=== PATIENT | female | born 1960 | race Caucasian/White ===

== ENCOUNTER 2017-01-29 09:27 | Outpatient (CLI) | payer SELFPAY | END 2017-01-29 09:28 | disposition home or self-care (01) | DX: M47.816 Spondylosis without myelopathy or radiculopathy, lumbar region (principal); M47.817 Spondylosis without myelopathy or radiculopathy, lumbosacral region; M79.641 Pain in right hand ==

== ENCOUNTER 2017-10-18 08:27 | Outpatient (CLI) | payer SELFPAY ==
--- NOTE | 2017-10-23 08:47 | XRAY Report ---
EXAMINATION: BILATERAL ACROMIOCLAVICULAR JOINTS WITH AND WITHOUT WEIGHTS CLINICAL INDICATION: Acromioclavicular joint pain. Frontal weightbearing and nonweightbearing views of the clavicles were obtained. The acromioclavicular joints are symmetric, and there is no significant change with weightbearing. There is no evidence of shoulder separation on either side. IMPRESSION: NORMAL APPEARANCE OF THE ACROMIOCLAVICULAR JOINTS. NO EVIDENCE OF AC SEPARATION ON EITHER SIDE. TD: 10/18/2017 13:29 [facility]
== END 2017-10-18 08:28 | disposition home or self-care (01) ==
LOC: DI.S 08:27
PROVIDERS: ATTEND Nurse Practitioner Family
DX: M25.519 Pain in unspecified shoulder (principal)
CPT/HCPCS: 73050

== ENCOUNTER 2018-06-04 11:30 | Outpatient (CLI) | payer SELFPAY ==
--- NOTE | 2018-06-04 12:08 | XRAY Report ---
Procedure Date: 06/04/2018 Accession Number: [id number] / [id number] Procedure: XRS - Shoulder 2 View RT CPT Code: FULL RESULT: EXAM: Shoulder 2 View RT DATE: 06/04/2018 11:57 AM CLINICAL HISTORY: PAIN IN RIGHT SHOULDER COMPARISON: None. TECHNIQUE: 3 views. FINDINGS: Bones: Normal. No fracture or bone lesion. Joints: The glenohumeral and acromioclavicular joints are normal. Soft tissues: The visualized hemithorax is unremarkable. No soft tissue swelling. IMPRESSION: Normal shoulder radiography. RADIA
== END 2018-06-04 11:31 | disposition home or self-care (01) ==
LOC: DI.S 11:30
PROVIDERS: ATTEND Nurse Practitioner Family
DX: M25.511 Pain in right shoulder (principal)

== ENCOUNTER 2019-09-12 20:44 | Inpatient (IN) | payer MEDICAID ==
--- NOTE | 2019-09-12 21:53 | ED Physician Documentation ---
PD HPI FOCAL NEURO - Stated complaint Stated Complaint: L SIDE NUMBNESS/SLURRING - Chief complaint Chief Complaint: Neuro - History obtained from History obtained from: Patient - History of Present Illness Timing - onset: Enter time (04:00), Today Timing - duration: Hours Timing - details: Abrupt onset Severity of deficit: Moderate Weakness: Arm, Hand, Leg, Foot, Left Numbness: Face, Arm, Hand, Leg, Foot, Left Associated symptoms: No: Headache Contributing factors: negative: Anticoagulated, Vascular dz, Atrial fibrillation, Prosthetic heart valve Baseline status: positive: A&OX3, ambulatory, indep Similar symptoms before: Has not had sx before Recently seen: Not recently seen - Additional information Additional information: patient woke from sleep at approximately 4 AM and noted left-sided numbness (most pronounced in LUE, LLE, but also in face). She thought perhaps this was due to sleeping on that side and thus didn't think it was concerning at that time. She fell back asleep and subsequently woke up and numbness persisted. Family then spoke to her this evening and detected slurred speech and were worried about facial asymmetry. They also noted she was weak on the left side. Review of Systems Constitutional: reports: Reviewed and negative Eyes: reports: Reviewed and negative Ears: reports: Reviewed and negative Nose: reports: Reviewed and negative Throat: reports: Reviewed and negative Cardiac: reports: Reviewed and negative Respiratory: reports: Reviewed and negative GI: reports: Reviewed and negative : reports: Reviewed and negative Skin: reports: Rash (right second finger cellulitis (on PO antibiotics for this and using topical abx as well)) Musculoskeletal: reports: Reviewed and negative Neurologic: reports: Focal weakness, Numbness, Difficulty speaking. denies: Generalized weakness, Confused, Altered mental status, Headache, Head injury PD PAST MEDICAL HISTORY - Past Medical History Past Medical History: Yes Derm: Other (right finger cellulitis (active)) - Past Surgical History Past Surgical History: No - Present Medications Home Medications: Ambulatory Orders Medication Instructions Recorded Confirmed Amoxicillin/Potassium Clav 1 tab PO BID 09/12/19 09/12/19 [Amox-Clav 875-125 mg Tablet] HYDROcod/ACETAM 5/325 [[place] 5/325] 1 - 2 ea PO Q6H PRN 09/12/19 09/12/19 Sertraline [Zoloft] 25 mg PO PRN PRN 09/12/19 09/12/19 Sulfamethoxazole/Trimethoprim 1 tab PO BID 09/12/19 09/12/19 [Sulfamethoxazole-Tmp Ds Tablet] - Allergies Allergies/Adverse Reactions: Allergies Allergy/AdvReac Type Severity Reaction Status Date / Time Penicillins Allergy Unknown Verified 09/12/19 20:51 - Living Situation Living Arrangement: reports: At home - Family History Family history: reports: CVA PD ED PE NORMAL - Vitals Vital signs reviewed: Yes - General General: Alert and oriented X 3, No acute distress, Well developed/nourished - HEENT HEENT: Atraumatic, PERRL, EOMI, Moist mucous membranes - Neck Neck: Supple, no meningeal sign, No bony TTP - Cardiac Cardiac: RRR, No murmur, No gallop, No rub - Respiratory Respiratory: No respiratory distress, Clear bilaterally - Abdomen Abdomen: Soft, Non tender - Derm Derm: Normal color, Warm and dry - Extremities Extremities: No edema - Neuro Neuro: Alert and oriented X 3, saw filer 2-12 intact, Normal speech Eye Opening: Spontaneous Motor: Obeys Commands Verbal: Oriented GCS Score: 15 PD ED PE EXPANDED - Neuro Neuro: Alert and Oriented X 3, Weakness, Abnormal sensation, Dysarthria NIHSS - Level of Consciousness Level of consciousness: (0) Alert, Keenly responsive LOC Questions: (0) Answers both Q's correct LOC Commands: (0) Performs both correctly - Gaze Best Gaze: (0) Normal - Visual Visual: (0) No loss - Facial Palsy Facial Palsy: (0) Normal, symmetrical movement - Motor Arms (both separate) Motor Arm (right): (0) No drift Motor Arm (left): (1) Drift - Motor Legs (both separate) Motor Leg (right): (0) No drift Motor Leg (left): (2) Some effort against gravity - Limb Ataxia Limb Ataxia: (2) Present in 2 limbs (LUE, LLE) - Sensory Sensory: (1) Yfkk-os-phrhdowh loss (face, LUE, LLE) - Best Language Best Language: (0) No aphasia - Dysarthria Dysarthria: (1) [id number] dysarthria - Extinction and Inattention (formally neg Extinction and inattention: (0) No abnormality - Total Score/Results Total Score/Result: 7 Results - Vitals Vitals: Vital Signs - 24 hr 09/12/19 09/12/19 09/12/19 20:51 21:45 22:18 Temperature 37.1 C Heart Rate 77 72 79 Respiratory 17 14 14 Rate Blood Pressure 183/125 H 171/100 H 165/97 H O2 Saturation 98 99 98 09/12/19 09/12/19 09/13/19 22:52 23:29 00:30 Temperature Heart Rate 70 76 74 Respiratory 16 22 18 Rate Blood Pressure 175/105 H 171/99 H 158/86 H O2 Saturation 97 96 100 09/13/19 09/13/19 01:19 01:54 Temperature Heart Rate 74 70 Respiratory 20 16 Rate Blood Pressure 189/89 H 181/113 H O2 Saturation 99 97 Oxygen O2 Source Room air - EKG (time done) No standard instances Rate: Rate (enter#) (71) Rhythm: NSR [place]: Normal Intervals: Normal DE QRS: Normal Ischemia: Normal ST segments - Labs Labs: Laboratory Tests 09/12/19 09/12/19 09/12/19 22:30 22:30 22:30 WBC 8.6 RBC 3.94 L Hgb 12.9 Hct 38.4 MCV 97.5 MCH 32.7 H MCHC 33.6 RDW 14.2 Plt Count 287 MPV 9.9 Neut # (Auto) 6.4 Lymph # (Auto) 1.6 B[place]le # (Auto) 0.5 Eos # (Auto) 0.0 Baso # (Auto) 0.0 Absolute Nucleated RBC 0.00 Nucleated RBC % 0.0 Sodium 136 Potassium 3.5 Chloride 103 Carbon Dioxide 21 Anion Gap 12.0 BUN 13 Creatinine 0.8 Estimated GFR (MDRD) 74 L Glucose 108 H Calcium 9.3 Total Bilirubin 0.8 AST 19 ALT 14 Alkaline Phosphatase 91 Troponin I High Sens 4.9 Total Protein 9.0 H Albumin 4.1 Globulin 4.9 H Albumin/Globulin Ratio 0.8 L Lipase 34 Urine Color Urine Clarity Urine pH Ur Specific [place] Urine Protein Urine Glucose (UA) Urine Ketones Urine Occult Blood Urine Nitrite Urine Bilirubin Urine Urobilinogen Ur Leukocyte Esterase Urine RBC Urine WBC Ur Squamous Epith Cells Urine Bacteria Urine Casts Ur Microscopic Review Urine Culture Comments 09/13/19 01:20 WBC RBC Hgb Hct MCV MCH MCHC RDW Plt Count MPV Neut # (Auto) Lymph # (Auto) Beadle # (Auto) Eos # (Auto) Baso # (Auto) Absolute Nucleated RBC Nucleated RBC % Sodium Potassium Chloride Carbon Dioxide Anion Gap BUN Creatinine Estimated GFR (MDRD) Glucose Calcium Total Bilirubin AST ALT Alkaline Phosphatase Troponin I High Sens Total Protein Albumin Globulin Albumin/Globulin Ratio Lipase Urine Color YELLOW Urine Clarity CLEAR Urine pH 5.5 Ur Specific [place] 1.025 Urine Protein TRACE Urine Glucose (UA) NEGATIVE Urine Ketones 15 H Urine Occult Blood NEGATIVE Urine Nitrite NEGATIVE Urine Bilirubin NEGATIVE Urine Urobilinogen 0.2 (NORMAL) Ur Leukocyte Esterase TRACE H Urine RBC None Seen Urine WBC 4-5 Ur Squamous Epith Cells MOD Squamous H Urine Bacteria Rare Urine Casts 0-2 Hyaline Casts Ur Microscopic Review INDICATED Urine Culture Comments NOT INDICATED - Rads (name of study) CT head Radiology: Prelim report reviewed, See rad report chest xray Radiology: Prelim report reviewed, See rad report PD MEDICAL DECISION MAKING - ED course Complexity details: reviewed results, re-evaluated patient, considered differential, d/w patient, d/w family ED course: H+P s/o CVA, 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 ED testing unremarkable but has significant and persistent deficits and thus would benefit from admission and further testing for suspected CVA. - TPA CVA checklist Inclusion crititeria: positive: Sig neuro deficit, CT no bleed. negative: Onset know < 4.5 hr Departure - Departure Disposition: 66 [facility] DC/Xfer Clinical Impression: Cerebrovascular accident (CVA) Qualifiers: CVA mechanism: unspecified Qualified Code(s): I63.9 - Cerebral infarction, unspecified Condition: Stable Discharge Date/Time: 09/13/19 02:57
[2019-09-12 22:43] LABS: BASOPHILS % (AUTO) 0.2 %; EOSINOPHILS % (AUTO) 0.2 %; HGB - HEMOGLOBIN 12.9 g/dL (12.0-16.0); LYMPHOCYTES # (AUTO) 1.6 10^3/uL (1.5-3.5); LYMPHOCYTES % (AUTO) 18.5 %; MEAN CORPUSCULAR HEMOGLOBIN 32.7 pg (27.0-31.0); MEAN CORPUSCULAR HGB CONC 33.6 g/dL (32.0-36.0); MEAN CORPUSCULAR VOLUME 97.5 fL (81.0-99.0); MEAN PLATELET VOLUME 9.9 fL (7.9-10.8); MONOCYTES # (AUTO) 0.5 10^3/uL (0.0-1.0); NEUTROPHILS # (AUTO) 6.4 10^3/uL (1.5-6.6); NEUTROPHILS % (AUTO) 74.7 %; PLT - PLATELET COUNT 287 10^3/uL (130-450); RED BLOOD COUNT 3.94 10^6/uL (4.20-5.40); RED CELL DISTRIBUTION WIDTH 14.2 % (12.0-15.0); WHITE BLOOD COUNT 8.6 x10^3/uL (4.8-10.8)
[2019-09-12 22:50] LABS: ALBUMIN 4.1 g/dL (3.2-5.5); ALBUMIN/GLOBULIN RATIO 0.8 (1.0-2.2); BILIRUBIN,TOTAL 0.8 mg/dL (0.2-1.0); CALCIUM 9.3 mg/dL (8.5-10.3); CREATININE 0.8 mg/dL (0.4-1.0)
--- NOTE | 2019-09-12 23:00 | CT Report ---
Reason: weakness, numbness Procedure Date: 09/12/2019 Accession Number: [id number] / [id number] Procedure: CT - HEAD WO CPT Code: Final Report FULL RESULT: EXAM: CT HEAD EXAM DATE: 09/12/2019 10:42 PM. CLINICAL HISTORY: Weakness, numbness. Left-sided weakness and numbness since this morning. Slurred speech. COMPARISON: None. TECHNIQUE: Multiaxial CT images were obtained from the foramen magnum to the vertex. Reformats: Sagittal and coronal. IV contrast: None. In accordance with CT protocol optimization, one or more of the following dose reduction techniques were utilized for this exam: automated exposure control, adjustment of mA and/or KV based on patient size, or use of iterative reconstructive technique. FINDINGS: Parenchyma: No acute intracranial hemorrhage or large cortical infarct. No intra-axial mass within the confines of a non-contrast exam. No midline shift. Extraaxial Spaces: No abnormal extra-axial collections demonstrated. Ventricles and sulci: Ventricles and sulci are proportional. Sinuses: Visualized paranasal sinuses are without air-fluid level. No evident mastoid fluid. Orbits: Without significant abnormality. Bones: No evidence of fracture or calvarial defect. Other: None. IMPRESSION: No CT evidence of an acute intracranial abnormality. If there is clinical suspicion of an acute infarct, consider MRI since it is more sensitive than CT. RADIA
--- NOTE | 2019-09-12 23:01 | XRAY Report ---
Reason: weakness Procedure Date: 09/12/2019 Accession Number: [id number] / [id number] Procedure: XR - Chest 2 View X-Ray CPT Code: 84200 Final Report FULL RESULT: EXAM: CHEST RADIOGRAPHY EXAM DATE: 09/12/2019 10:47 PM. CLINICAL HISTORY: Left-sided numbness and weakness. COMPARISON: None. TECHNIQUE: 2 views. FINDINGS: Lungs/Pleura: No alveolar consolidation or pleural effusion seen. No pneumothorax. Mediastinum: Heart and mediastinal contours are unremarkable. Other: None. IMPRESSION: 1. No acute abnormality seen in the chest. RADIA
[2019-09-12] MEDS ORDERED: ACETAMINOPHEN 325 MG TABLET PO STA (23:06)
[2019-09-13] MEDS ORDERED: CYCLOBENZAPRINE 10 MG TABLET PO STA (01:16)
[2019-09-13 01:43] LABS: GLUCOSE, URINE (UA) NEGATIVE (NEGATIVE); KETONES,URINE (UA) 15 mg/dL (NEGATIVE); LEUKOCYTE ESTERASE, URINE TRACE (NEGATIVE); NITRITE,URINE NEGATIVE (NEGATIVE); OCCULT BLOOD,URINE NEGATIVE (NEGATIVE); PH,URINE 5.5 PH (5.0-7.5); PROTEIN,URINE TRACE mg/dL (NEGATIVE); UROBILINOGEN,URINE 0.2 (NORMAL) E.U./dL (NORMAL)
[2019-09-13] MEDS ORDERED: SODIUM CHLORIDE 0.9% 1,000 ML IV STA (01:45)
[2019-09-13 01:54] LABS: BILIRUBIN,URINE NEGATIVE (NEGATIVE); ICTOTEST,URINE NEGATIVE
[2019-09-13 01:55] LABS: BACTERIA,URINE Rare /HPF (None Seen); CASTS, URINE 0-2 Hyaline Casts /LPF; CLARITY,URINE CLEAR (CLEAR); RBC,URINE None Seen /HPF (0-5); SQUAMOUS EPITHELIAL CELL,UR MOD Squamous (<= Few)
[2019-09-13] MEDS ORDERED: SODIUM CHLORIDE FLUSH 0.9% 10 ML SYRINGE IVP PRN (02:24)
--- NOTE | 2019-09-13 02:29 | HISTORY & PHYSICAL EXAMINATION ---
Chief Complaint - Chief Complaint Chief Complaint: left sided weakness History of Present Illness - Admitted From Admitted From:: [facility] ED - History Obtained From Records Reviewed: yes History obtained from: patient - History of Present Illness HPI Comment/Other: Patient is a 58 y/o female who presented to the ED with left sided weakness. She woke up around 4 am on 09/12/19 with left sided weakness/numbness and thought it was because she slept on the arm. She went back to sleep and noticed that the symptoms persisted when she work up a few hours later. She felt unsteady on her feet. Her daughter reports that it appeared like her left arm was just hanging by her side. She presented to the ED on the evening of 09/12/19. As a result of her symptoms she is being admitted for further treatment. She denies chest pain, dyspnea, abd pain, nausea, vomiting, fever or chills. She reports experiencing headaches the previous day. She also complain of spasms in her left leg. The rest of her history is unremarkable. History - Past Medical History Cardiovascular: reports: Hypertension Endocrine/Autoimmune: reports: Systemic lupus erythematosus, Other (Rheumatoid Arthritis) - Past Surgical History Other past surgical history: She denied any surgical history - Family & Social History Family History: Mother: CVA/TIA, Father: MA, Sister: Cancer (breast cancer) Social History Notes: She quit smoking in 1993. She smoked 1/2ppd X15 years. She drinks alcohol occasionally. She uses marijuana - POLST Patient has POLST: No POLST Status: Full Code Meds/Allgy - Home Medications Home Medications: Ambulatory Orders Medication Instructions Recorded Confirmed Amoxicillin/Potassium Clav 1 tab PO BID 09/12/19 09/12/19 [Amox-Clav 875-125 mg Tablet] HYDROcod/ACETAM 5/325 [[place] 5/325] 1 - 2 ea PO Q6H PRN 09/12/19 09/12/19 Sertraline [Zoloft] 25 mg PO PRN PRN 09/12/19 09/12/19 Sulfamethoxazole/Trimethoprim 1 tab PO BID 09/12/19 09/12/19 [Sulfamethoxazole-Tmp Ds Tablet] - Allergies Allergies/Adverse Reactions: Allergies Allergy/AdvReac Type Severity Reaction Status Date / Time Penicillins Allergy Unknown Verified 09/12/19 20:51 Review of Systems - Constitutional Constitutional: reports: Weakness. denies: Fatigue, Fever, Chills, Malaise - Eyes Eyes: denies: Pain, Blurred vision, Vision loss, Dipolpia - Ears, Nose & Throat Ears, Nose & Throat: denies: Vertigo - Cardiovascular Cariovascular: denies: Irregular heart rate, Palpitations, Chest pain, Edema, Lightheadedness, Syncope, Exertional dyspnea - Respiratory Respiratory: denies: Cough, Sputum production, Wheezing - Gastrointestinal Gastrointestinal: denies: Abdominal pain, Abdominal distention, Constipation, Diarrhea, Nausea, Vomiting, Coffee grounds emesis, Reflux/heartburn - Genitourinary Genitourinary: denies: Dysuria, Frequency, Urgency, Hematuria, Incontinence, Flank pain - Musculoskeletal Musculoskeletal: reports: Other (Mscle spasms) - Integumentary Integumentary: reports: Rash, Pruritis, Lesions - Neurological Neurological: reports: Focal weakness (left sided), Headache, Numbness, Abnormal gait - Psychiatric Psychiatric: denies: Depression, Anxiety - Endocrine Endocrine: denies: Polyuria, Polydypsia - Hematologic/Lymphatic Hematologic/Lymphatic: denies: Anemia, Bruising Prior Level of Functionality: She is independent of activities of daily living Exam - Vital Signs Vital Signs: Vital Signs x48h Temp Pulse Resp BP Pulse Ox 09/13/19 01:54 70 16 181/113 H 97 09/13/19 01:19 74 20 189/89 H 99 09/13/19 00:30 74 18 158/86 H 100 09/12/19 23:29 76 22 171/99 H 96 09/12/19 22:52 70 16 175/105 H 97 09/12/19 22:18 79 14 165/97 H 98 09/12/19 21:45 72 14 171/100 H 99 09/12/19 20:51 37.1 C 77 17 183/125 H 98 - Physical Exam General Appearance: positive: Alert, Moderate distress Eyes Bilateral: positive: Normal inspection, PERRL, EOMI ENT: positive: ENT inspection nml, Dry mucous membranes Neck: positive: Nml inspection, No JVD, Trachea midline Respiratory: positive: Chest non-tender, No respiratory distress. negative: Wheezes, Rales, Rhonchi Cardiovascular: positive: Regular rate & rhythm, No murmur. negative: Irregularly irregular Abdomen: positive: Non-tender, No organomegaly, Nml bowel sounds, No distention. negative: Guarding, Rebound Back: positive: Nml inspection Skin: positive: Color nml, No rash, Warm Extremities: positive: Non-tender, No pedal edema. negative: Full ROM Neurologic/Psychiatric: positive: Oriented x3, CN's nml (2-12), Weakness (left sided) Conclusion/Plan - Problem List (1) Cerebrovascular accident (CVA) Conclusion/Plan: Likely 2/2 uncontrolled hypertension Will allow permissive hypertension for now. Will treat is SBP>200 Neuro checks q4hrs. MRI brain, 2D echo ordered Lipid panel, HgA1c pending Patient started on lipitor 40mg po daily Full dose aspirin. 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
[2019-09-13] MEDS ORDERED: SODIUM CHLORIDE FLUSH 0.9% 10 ML SYRINGE ONE (02:59)
[2019-09-13] MEDS: SODIUM CHLORIDE 0.9% 1,000 ML IV SCH ×2 (03:00→11:13)
[2019-09-13 05:28] LABS: BASOPHILS % (AUTO) 0.3 %; EOSINOPHILS % (AUTO) 0.5 %; HGB - HEMOGLOBIN 12.4 g/dL (12.0-16.0); LYMPHOCYTES # (AUTO) 2.5 10^3/uL (1.5-3.5); LYMPHOCYTES % (AUTO) 40.1 %; MEAN CORPUSCULAR HEMOGLOBIN 33.1 pg (27.0-31.0); MEAN CORPUSCULAR HGB CONC 33.6 g/dL (32.0-36.0); MEAN CORPUSCULAR VOLUME 98.4 fL (81.0-99.0); MEAN PLATELET VOLUME 9.8 fL (7.9-10.8); MONOCYTES # (AUTO) 0.5 10^3/uL (0.0-1.0); MONOCYTES % (AUTO) 8.1 %; NEUTROPHILS # (AUTO) 3.2 10^3/uL (1.5-6.6); NEUTROPHILS % (AUTO) 50.7 %; PLT - PLATELET COUNT 268 10^3/uL (130-450); RED BLOOD COUNT 3.75 10^6/uL (4.20-5.40); RED CELL DISTRIBUTION WIDTH 14.1 % (12.0-15.0); WHITE BLOOD COUNT 6.3 x10^3/uL (4.8-10.8)
[2019-09-13 05:43] LABS: HB2 TOTAL 12.5 g/dL; HEMOGLOBIN A1C 0.42 g/dL; HEMOGLOBIN A1C % 5.2 % (4.6-6.2)
[2019-09-13 06:03] LABS: BUN - BLOOD UREA NITROGEN 11 mg/dL (6-20); CALCIUM 9.2 mg/dL (8.5-10.3); CARBON DIOXIDE - CO2 22 mmol/L (21-32); CHLORIDE 106 mmol/L (101-111); CHOL/HDL RATIO 4.3 (<4.4); CHOLESTEROL 168 mg/dL; CREATININE 0.7 mg/dL (0.4-1.0); GFR - MDRD 86 (>89); GLUCOSE 97 mg/dL (70-100); HDL CHOLESTEROL 39 mg/dL; LDL CHOLESTEROL,CALCULATED 112 mg/dL; LDL/HDL RATIO 2.9 (<4.4); SODIUM 139 mmol/L (135-145); VLDL CHOLESTEROL 17 mg/dL
[2019-09-13] MEDS: SODIUM CHLORIDE FLUSH 0.9% 10 ML SYRINGE IVP SCH ×2 (09:37→19:30)
[2019-09-13] MEDS: ASPIRIN 325 MG TABLET PO SCH (09:43)
[2019-09-13] MEDS: ACETAMINOPHEN 500 MG TABLET PO PRN (11:11)
--- NOTE | 2019-09-13 12:21 | Ultrasound Report ---
Reason: CVA work up Procedure Date: 09/13/2019 Accession Number: [id number] / [id number] Procedure: US - Carotid Doppler Complete CPT Code: Final Report FULL RESULT: EXAM: BILATERAL CAROTID AND VERTEBRAL ARTERY DUPLEX DOPPLER ULTRASOUND: EXAM DATE: 09/13/2019 07:11 AM CLINICAL HISTORY: Cerebrovascular accident. Weakness and numbness. COMPARISON: None. TECHNIQUE: Grayscale imaging, color Doppler, and duplex spectral Doppler were used to evaluate the carotid and vertebral arteries bilaterally. Static images were obtained. FINDINGS: Minor atherosclerotic plaque formation is seen mainly in the left carotid bulb. No elevated velocities or ratios to suggest stenosis. Normal antegrade flow is present in bilateral vertebral arteries. VELOCITIES (cm/sec): Right CCA mid: PSV 78.6 cm/sec CCA dist: PSV 63.8 cm/sec ICA prox: PSV 59.9 cm/sec, EDV 15.0 cm/sec ICA mid: PSV 68.3 cm/sec, EDV 31.9 cm/sec ICA dist: PSV 74.9 cm/sec, EDV 29.3 cm/sec ECA: PSV 99.3 cm/sec Vert: PSV 27.8 cm/sec ICA/CCA: 0.9 Left CCA mid: PSV 80.2 cm/sec CCA dist: PSV 57.9 cm/sec ICA prox: PSV 62.6 cm/sec, EDV 27.9 cm/sec ICA mid: PSV 67.8 cm/sec, EDV 30.8 cm/sec ICA dist: PSV 61.8 cm/sec, EDV 30.6 cm/sec ECA: PSV 91.1 cm/sec Vert: PSV 47.0 cm/sec ICA/CCA: 0.8 ICA diameter stenosis: Right: <50% by velocity and <70% by NASCET criteria. Left: <50% by velocity and <70% by NASCET criteria. IMPRESSION: 1. Minimal predominantly left-sided carotid artery plaquing. 2. In the right carotid artery there are no elevated carotid artery velocities to suggest hemodynamically significant stenosis. 3. In the left carotid artery there are no elevated carotid artery velocities to suggest hemodynamically significant stenosis. 4. Normal antegrade flow is present in bilateral vertebral arteries. General Recommendations: Stenosis =50% ICA - Follow-up ultrasound 6-12 months Stenosis <50% ICA - High Risk Patient with plaque - Follow-up ultrasound 1-2 years Normal Study but High Risk Patient - Follow-up ultrasound 3-5 years Management recommendations and diagnostic criteria are based on current IAC endorsed standards in Carotid Artery Stenosis: Grayscale and Doppler Ultrasound Diagnosis. Validated velocity measurements with angiographic measurements and velocity criteria are extrapolated from diameter data as defined by the Society of Radiologists in Ultrasound Consensus Conference Radiology 2003; 229;340-346. RADIA
--- NOTE | 2019-09-13 12:59 | PROVIDER PROGRESS NOTE ---
Subjective - Prog Note Date Prog Note Date: 09/13/19 Prog Note Time: 09:00 - Subjective Pt reports feeling: Improved Subjective: her left plegia is better. asking quesitons. Current Medications - Current Medications Current Medications: Active Medications Acetaminophen (Tylenol) 500 mg PO Q4HR PRN PRN Reason: Pain or Fever > 38C (100.4F) Last Admin: 09/13/19 11:11 Dose: 500 mg Aspirin (Gin) 325 mg PO DAILYWM [facility] Last Admin: 09/13/19 09:43 Dose: 325 mg Atorvastatin Calcium (Lipitor) 40 mg PO QPM [facility] Sodium Chloride (Normal Saline 0.9%) 1,000 mls @ 100 mls/hr IV .Q10H [facility] Last Admin: 09/13/19 11:13 Dose: 100 mls/hr Sodium Chloride (Normal Saline Flush 0.9%) 10 ml IVP PRN PRN PRN Reason: NEEDED PER PROVIDER ORDERS Sodium Chloride (Normal Saline Flush 0.9%) 10 ml IVP 0100,0900,1700 [facility] Last Admin: 09/13/19 09:37 Dose: Not Given Lisinopril 10 mg PO DAILY 09/13/19 Objective - Vital Signs/Intake & Output Reviewed Vital Signs: Yes Vital Signs: Vital Signs x48h Temp Pulse Pulse Resp BP BP Pulse Ox 09/13/19 11:46 36.8 C 73 16 177/97 H 99 09/13/19 10:50 75 148/96 H 09/13/19 07:51 36.8 C 72 18 162/92 H 98 Intake & Output: Intake & Output 09/10/19 09/11/19 09/12/19 09/13/19 23:59 23:59 23:59 23:59 Intake Total 1791.667 Balance 1791.667 - Objective General Appearance: positive: No acute distress, Alert, Other (a little tearful) Eyes Bilateral: positive: PERRL ENT: positive: Pharynx nml Neck: positive: No JVD Respiratory: positive: Chest non-tender. negative: Wheezes, Rales, Rhonchi Cardiovascular: positive: Regular rate & rhythm. negative: Systolic murmur, Gallop/S4, Friction rub Abdomen: positive: Non-tender, No organomegaly, Nml bowel sounds, No distention. negative: Guarding, Rebound Skin: positive: Warm, Dry. negative: Skin rash Extremities: positive: Non-tender, Full ROM (plegia on left), No pedal edema. negative: Joint swelling, Sharmila's sign/cords Neurologic/Psychiatric: positive: Oriented x3, Facial droop (left), Slurred/abnml speech. negative: CN's nml (2-12) (left facial droop), Motor nml (left hemiplegia with arm better than leg. able to lift arm and squeeze hand, able to move leg across bed.) - Lab Results Fish Bones: 09/13/19 05:14 09/13/19 05:14 Other Labs: Lab Results x24hrs 09/13/19 09/13/19 09/13/19 Range/Units 05:14 05:14 05:14 WBC 6.3 (4.8-10.8) x10^3/uL RBC 3.75 L (4.20-5.40) 10^6/uL Hgb 12.4 (12.0-16.0) g/dL Hct 36.9 L (37.0-47.0) % MCV 98.4 (81.0-99.0) fL MCH 33.1 H (27.0-31.0) pg MCHC 33.6 (32.0-36.0) g/dL RDW 14.1 (12.0-15.0) % Plt Count 268 (130-450) 10^3/uL MPV 9.8 (7.9-10.8) fL Neut # (Auto) 3.2 (1.5-6.6) 10^3/uL Lymph # (Auto) 2.5 (1.5-3.5) 10^3/uL [place] # (Auto) 0.5 (0.0-1.0) 10^3/uL Eos # (Auto) 0.0 (0.0-0.7) 10^3/uL Baso # (Auto) 0.0 (0.0-0.1) 10^3/uL Absolute Nucleated RBC 0.00 x10^3/uL Nucleated RBC % 0.0 /100WBC Sodium 139 (135-145) mmol/L Potassium 3.4 L (3.5-5.0) mmol/L Chloride 106 (101-111) mmol/L Carbon Dioxide 22 (21-32) mmol/L Anion Gap 11.0 (6-13) BUN 11 (6-20) mg/dL Creatinine 0.7 (0.4-1.0) mg/dL Estimated GFR (MDRD) 86 L (>89) Glucose 97 (70-100) mg/dL Glycated Hemoglobin 5.2 (4.6-6.2) % Estim Average Glucose 103 H (70-100) Calcium 9.2 (8.5-10.3) mg/dL Total Bilirubin (0.2-1.0) mg/dL AST (10-42) IU/L ALT (10-60) IU/L Alkaline Phosphatase (42-121) IU/L Troponin I High Sens (2.3-14.8) ng/L Total Protein (6.7-8.2) g/dL Albumin (3.2-5.5) g/dL Globulin (2.1-4.2) g/dL Albumin/Globulin Ratio (1.0-2.2) Triglycerides 85 ( - 149) mg/dL Cholesterol 168 ( - 199) mg/dL LDL Cholesterol, Calc 112 ( - 129) mg/dL VLDL Cholesterol 17 mg/dL HDL Cholesterol 39 L (60 - ) mg/dL LDL/HDL Ratio 2.9 (<4.4) Cholesterol/HDL Ratio 4.3 (<4.4) Lipase (22-51) U/L Urine Color Urine Clarity (CLEAR) Urine pH (5.0-7.5) PH Ur Specific Tracy (1.002-1.030) Urine Protein (NEGATIVE) mg/dL Urine Glucose (UA) (NEGATIVE) mg/dL Urine Ketones (NEGATIVE) mg/dL Urine Occult Blood (NEGATIVE) Urine Nitrite (NEGATIVE) Urine Bilirubin (NEGATIVE) Urine Urobilinogen (NORMAL) E.U./dL Ur Leukocyte Esterase (NEGATIVE) Urine RBC (0-5) /HPF Urine WBC (0-5) /HPF Ur Squamous Epith Cells (<= Few) Urine Bacteria (None Seen) /HPF Urine Casts /LPF Ur Microscopic Review Urine Culture Comments 09/13/19 09/12/19 09/12/19 Range/Units 01:20 22:30 22:30 WBC (4.8-10.8) x10^3/uL RBC (4.20-5.40) 10^6/uL Hgb (12.0-16.0) g/dL Hct (37.0-47.0) % MCV (81.0-99.0) fL MCH (27.0-31.0) pg MCHC (32.0-36.0) g/dL RDW (12.0-15.0) % Plt Count (130-450) 10^3/uL MPV (7.9-10.8) fL Neut # (Auto) (1.5-6.6) 10^3/uL Lymph # (Auto) (1.5-3.5) 10^3/uL [place] # (Auto) (0.0-1.0) 10^3/uL Eos # (Auto) (0.0-0.7) 10^3/uL Baso # (Auto) (0.0-0.1) 10^3/uL Absolute Nucleated RBC x10^3/uL Nucleated RBC % /100WBC Sodium 136 (135-145) mmol/L Potassium 3.5 (3.5-5.0) mmol/L Chloride 103 (101-111) mmol/L Carbon Dioxide 21 (21-32) mmol/L Anion Gap 12.0 (6-13) BUN 13 (6-20) mg/dL Creatinine 0.8 (0.4-1.0) mg/dL Estimated GFR (MDRD) 74 L (>89) Glucose 108 H (70-100) mg/dL Glycated Hemoglobin (4.6-6.2) % Estim Average Glucose (70-100) Calcium 9.3 (8.5-10.3) mg/dL Total Bilirubin 0.8 (0.2-1.0) mg/dL AST 19 (10-42) IU/L ALT 14 (10-60) IU/L Alkaline Phosphatase 91 (42-121) IU/L Troponin I High Sens 4.9 (2.3-14.8) ng/L Total Protein 9.0 H (6.7-8.2) g/dL Albumin 4.1 (3.2-5.5) g/dL Globulin 4.9 H (2.1-4.2) g/dL Albumin/Globulin Ratio 0.8 L (1.0-2.2) Triglycerides ( - 149) mg/dL Cholesterol ( - 199) mg/dL LDL Cholesterol, Calc ( - 129) mg/dL VLDL Cholesterol mg/dL HDL Cholesterol (60 - ) mg/dL LDL/HDL Ratio (<4.4) Cholesterol/HDL Ratio (<4.4) Lipase 34 (22-51) U/L Urine Color YELLOW Urine Clarity CLEAR (CLEAR) Urine pH 5.5 (5.0-7.5) PH Ur Specific Tracy 1.025 (1.002-1.030) Urine Protein TRACE (NEGATIVE) mg/dL Urine Glucose (UA) NEGATIVE (NEGATIVE) mg/dL Urine Ketones 15 H (NEGATIVE) mg/dL Urine Occult Blood NEGATIVE (NEGATIVE) Urine Nitrite NEGATIVE (NEGATIVE) Urine Bilirubin NEGATIVE (NEGATIVE) Urine Urobilinogen 0.2 (NORMAL) (NORMAL) E.U./dL Ur Leukocyte Esterase TRACE H (NEGATIVE) Urine RBC None Seen (0-5) /HPF Urine WBC 4-5 (0-5) /HPF Ur Squamous Epith Cells MOD Squamous H (<= Few) Urine Bacteria Rare (None Seen) /HPF Urine Casts 0-2 Hyaline Casts /LPF Ur Microscopic Review INDICATED Urine Culture Comments NOT INDICATED 09/12/19 Range/Units 22:30 WBC 8.6 (4.8-10.8) x10^3/uL RBC 3.94 L (4.20-5.40) 10^6/uL Hgb 12.9 (12.0-16.0) g/dL Hct 38.4 (37.0-47.0) % MCV 97.5 (81.0-99.0) fL MCH 32.7 H (27.0-31.0) pg MCHC 33.6 (32.0-36.0) g/dL RDW 14.2 (12.0-15.0) % Plt Count 287 (130-450) 10^3/uL MPV 9.9 (7.9-10.8) fL Neut # (Auto) 6.4 (1.5-6.6) 10^3/uL Lymph # (Auto) 1.6 (1.5-3.5) 10^3/uL [place] # (Auto) 0.5 (0.0-1.0) 10^3/uL Eos # (Auto) 0.0 (0.0-0.7) 10^3/uL Baso # (Auto) 0.0 (0.0-0.1) 10^3/uL Absolute Nucleated RBC 0.00 x10^3/uL Nucleated RBC % 0.0 /100WBC Sodium (135-145) mmol/L Potassium (3.5-5.0) mmol/L Chloride (101-111) mmol/L Carbon Dioxide (21-32) mmol/L Anion Gap (6-13) BUN (6-20) mg/dL Creatinine (0.4-1.0) mg/dL Estimated GFR (MDRD) (>89) Glucose (70-100) mg/dL Glycated Hemoglobin (4.6-6.2) % Estim Average Glucose (70-100) Calcium (8.5-10.3) mg/dL Total Bilirubin (0.2-1.0) mg/dL AST (10-42) IU/L ALT (10-60) IU/L Alkaline Phosphatase (42-121) IU/L Troponin I High Sens (2.3-14.8) ng/L Total Protein (6.7-8.2) g/dL Albumin (3.2-5.5) g/dL Globulin (2.1-4.2) g/dL Albumin/Globulin Ratio (1.0-2.2) Triglycerides ( - 149) mg/dL Cholesterol ( - 199) mg/dL LDL Cholesterol, Calc ( - 129) mg/dL VLDL Cholesterol mg/dL HDL Cholesterol (60 - ) mg/dL LDL/HDL Ratio (<4.4) Cholesterol/HDL Ratio (<4.4) Lipase (22-51) U/L Urine Color Urine Clarity (CLEAR) Urine pH (5.0-7.5) PH Ur Specific Tracy (1.002-1.030) Urine Protein (NEGATIVE) mg/dL Urine Glucose (UA) (NEGATIVE) mg/dL Urine Ketones (NEGATIVE) mg/dL Urine Occult Blood (NEGATIVE) Urine Nitrite (NEGATIVE) Urine Bilirubin (NEGATIVE) Urine Urobilinogen (NORMAL) E.U./dL Ur Leukocyte Esterase (NEGATIVE) Urine RBC (0-5) /HPF Urine WBC (0-5) /HPF Ur Squamous Epith Cells (<= Few) Urine Bacteria (None Seen) /HPF Urine Casts /LPF Ur Microscopic Review Urine Culture Comments ABX Reporting Has patient been on IV antibiotics over the past 48 hours?: No Assessment/Plan - Problem List (1) Cerebrovascular accident (CVA) Impression: She is already improving. Able to lift her arm up andhold it for a few seconds before it drops. Left hand able to grasp mine and squeeze a bit. CVA Likely 2/2 uncontrolled hypertension vs. lupus vasculitis? Her carotid dopplers are without sig stenosis. But will need repeat carotids in 3 years due to high risk. Plan: continue to allow permissive hypertension for ~72 hours. Will treat is SBP>200 Neuro checks q4hrs. MRI brain, 2D echo ordered Lipid panel, HgA1c pending Patient started on lipitor 40mg po daily Full dose aspirin. PT/OT to evaluate and treat and let us know if candidate for rehab. Qualifiers: CVA mechanism: unspecified Qualified Code(s): I63.9 - Cerebral infarction, unspecified (2) History of lupus Conclusion/Plan: She reports that she stopped seeing her manager talent acquisition She is yet to re-establish Qualifiers: Qualified Code(s): I63.9 - Cerebral infarction, unspecified
[2019-09-13] MEDS ORDERED: SODIUM CHLORIDE 0.9% 1,000 ML IV SCH (16:02)
[2019-09-13] MEDS: SULFAMETHOXAZOLE PO SCH (21:00)
[2019-09-13] MEDS: AMOXICILLIN PO SCH (21:00)
[2019-09-13] MEDS: POTASSIUM CLAV PO SCH (21:00)
[2019-09-13] MEDS: ATORVASTATIN 40 MG TABLET PO SCH (21:00)
[2019-09-13] MEDS: TRIMETHOPRIM PO SCH (21:00)
[2019-09-13] MEDS: MUPIROCIN TOP SCH (21:01)
[2019-09-14] MEDS: SODIUM CHLORIDE FLUSH 0.9% 10 ML SYRINGE IVP SCH ×4 (05:15→23:59)
[2019-09-14] MEDS: ACETAMINOPHEN 500 MG TABLET PO PRN (05:23)
[2019-09-14 05:24] LABS: BASOPHILS % (AUTO) 0.4 %; EOSINOPHILS # (AUTO) 0.1 10^3/uL (0.0-0.7); EOSINOPHILS % (AUTO) 0.9 %; HGB - HEMOGLOBIN 12.1 g/dL (12.0-16.0); LYMPHOCYTES # (AUTO) 2.4 10^3/uL (1.5-3.5); LYMPHOCYTES % (AUTO) 43.6 %; MEAN CORPUSCULAR HEMOGLOBIN 31.5 pg (27.0-31.0); MEAN CORPUSCULAR HGB CONC 32.2 g/dL (32.0-36.0); MEAN CORPUSCULAR VOLUME 97.9 fL (81.0-99.0); MEAN PLATELET VOLUME 9.8 fL (7.9-10.8); MONOCYTES # (AUTO) 0.4 10^3/uL (0.0-1.0); MONOCYTES % (AUTO) 6.6 %; NEUTROPHILS # (AUTO) 2.7 10^3/uL (1.5-6.6); NEUTROPHILS % (AUTO) 48.3 %; PLT - PLATELET COUNT 298 10^3/uL (130-450); RED BLOOD COUNT 3.84 10^6/uL (4.20-5.40); RED CELL DISTRIBUTION WIDTH 14.3 % (12.0-15.0); WHITE BLOOD COUNT 5.6 x10^3/uL (4.8-10.8)
[2019-09-14 05:29] LABS: CREATININE 0.7 mg/dL (0.4-1.0)
[2019-09-14] MEDS: MUPIROCIN TOP SCH ×3 (05:35→21:45)
[2019-09-14] MEDS: SULFAMETHOXAZOLE PO SCH ×2 (08:52→21:45)
[2019-09-14] MEDS: POTASSIUM CLAV PO SCH ×2 (08:52→21:45)
[2019-09-14] MEDS: AMOXICILLIN PO SCH ×2 (08:52→21:45)
[2019-09-14] MEDS: ASPIRIN 325 MG TABLET PO SCH (08:52)
[2019-09-14] MEDS: TRIMETHOPRIM PO SCH ×2 (08:52→21:45)
[2019-09-14] MEDS: LISINOPRIL 5 MG TABLET PO SCH (08:53)
[2019-09-14] MEDS ORDERED: LORazepam 2 MG/ML VIAL IVP PRN (13:06)
--- NOTE | 2019-09-14 13:08 | MRI Report ---
Reason: CVA work up Procedure Date: 09/14/2019 Accession Number: [id number] / [id number] Procedure: MRI - Brain W/O CPT Code: Final Report FULL RESULT: EXAM: MRI BRAIN WITHOUT CONTRAST EXAM DATE: 09/14/2019 11:24 AM. CLINICAL HISTORY: CVA work up. COMPARISON: HEAD W/O 09/12/2019 10:39 PM. TECHNIQUE: Multiplanar, multisequence T1-weighted and fluid-sensitive MR sequences of the brain were performed. Sequences optimized for routine evaluation. Other: None. IV Contrast: None. FINDINGS: There is diffusion restriction demonstrated within the posterior limb of the right internal capsule extending into the right caudate body (120, 505). This would be consistent with an area of acute to subacute cerebral infarction. There is T2 hyperintensity associated with the area of infarction consistent with a mild degree of associated edema. Cerebral volume and ventricular size are normal. The images are degraded by motion. There is fluid intensity within a few mastoid air cells bilaterally. The cerebral vascular flow voids are patent. The T2* sequence is normal. There is no evidence of subacute or chronic hemorrhage. The corpus callosum is of normal size and configuration. The pituitary and sella are normal. The craniocervical junction is normal. The optic nerves demonstrate symmetric signal intensity and size. The imaged portions of the paranasal sinuses are normally aerated. The bilateral parotid spaces exhibit normal signal intensity. The cerebral vascular flow voids are patent. IMPRESSION: 1. There is an acute to subacute area of cerebral infarction demonstrated in the posterior limb of the right internal capsule extending into the right caudate body. There is no evidence of overt hemorrhagic transformation within this area of cerebral infarction. The critical result notification system was initiated by Dr. Ayo Echols at 01:07 PM on 09/14/2019. The above critical result findings were discussed with Dr. Pearson by Dr. Ayo Echols at 01:14 PM on 09/14/2019.
[2019-09-14] MEDS: oxyCODONE 5 MG TABLET PO PRN (21:44)
[2019-09-14] MEDS: ATORVASTATIN 40 MG TABLET PO SCH (21:44)
--- NOTE | 2019-09-14 21:48 | PROVIDER PROGRESS NOTE ---
Assessment/Plan - Problem List (1) Cerebrovascular accident (CVA) Qualifiers: Qualified Code(s): I63.9 - Cerebral infarction, unspecified Assessment/Plan: MRI brain confirmed acute to subacute area of cerebral infarction in the posterior limb of the right internal capsule extending into the right caudate body. Patient ambulated with a walker during physical therapy today. Transfer to rehab pending occupational therapy assessment. 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 Will extent to a total of 13 days Re-incised and expressed due to persistent pain Continue mupirocin ointment Administer tetanus shot in the am Pain management - Current Meds Current Meds: Current Medications Generic Name Dose Route Start Last Admin Trade Name Freq PRN Reason Stop Dose Admin Acetaminophen 500 mg 09/13/19 10:30 09/14/19 05:23 Tylenol PO 500 mg Q4HR PRN Administration Pain or Fever > 38C (100.4F) Aspirin 325 mg 09/13/19 08:00 09/14/19 08:52 Gin PO 325 mg DAILYWM TIANA Administration Atorvastatin Calcium 40 mg 09/13/19 21:00 09/14/19 21:44 Lipitor PO 40 mg QPM TIANA Administration Sodium Chloride 1,000 mls @ 0 mls/hr 09/13/19 16:02 09/14/19 20:37 Normal Saline 0.9% IV 0 mls/hr .Q0M TIANA Infusion TKO Lisinopril 10 mg 09/14/19 09:00 09/14/19 08:53 Zestril PO Not Given DAILY TIANA Oxycodone HCl 5 mg 09/13/19 16:02 09/14/19 21:44 Roxicodone PO 5 mg Q6HR PRN Administration PAIN Amoxicillin/ 1 each 09/13/19 21:00 09/14/19 21:45 Potassium Clav [Amox PO 09/16/19 21:01 1 each -Clav 875-125 Mg BID TIANA Administration Tablet] 1 Tab) (Mupirocin [ 1 each 09/13/19 22:00 09/14/19 21:45 Mupirocin] Ointment TOP 09/16/19 22:01 1 each 1 Applic) TID TIANA Administration (Sulfamethoxazole/ 1 each 09/13/19 21:00 09/14/19 21:45 Trimethoprim [ PO 09/16/19 21:01 1 each Sulfamethoxazole-Tmp BID TIANA Administration Ds Tablet] 1 Tab) Sodium Chloride 10 ml 09/13/19 09:00 09/14/19 19:21 Normal Saline Flush 0.9% IVP 10 ml 0100,0900,1700 TIANA Administration - Lab Result Fish Bone Diagrams: 09/14/19 04:54 09/14/19 04:54 - Additional Planning My Orders: My Active Orders 09/13/19 21:00 Atorvastatin [Lipitor] 40 mg PO QPM 09/15/19 05:00 BMP - BASIC METABOLIC PANEL [CHEM] DAILYLAB CBC - COMP BLD CT W/AUTO DIFF [HEME] DAILYLAB 09/15/19 09:00 Docusate Sodium 250Mg Capsule [Colace 250Mg Capsule] 250 - 500 mg PO DAILY Polyethylene Glycol 3350 [Miralax] 17 gm PO DAILY Senna [Senokot] 8.6 - 17.2 mg PO DAILY 09/16/19 05:00 BMP - BASIC METABOLIC PANEL [CHEM] DAILYLAB CBC - COMP BLD CT W/AUTO DIFF [HEME] DAILYLAB 09/17/19 05:00 BMP - BASIC METABOLIC PANEL [CHEM] DAILYLAB CBC - COMP BLD CT W/AUTO DIFF [HEME] DAILYLAB Subjective - Subjective Patient Reports: Other (Pt complained of feeling hot and cold (?hot flashes) She complained of persistent pain in her left index finger where she has an infection She was able to ambulate today using a walker, during physical therapy. She denied chest pain, dyspnea, abdominal pain, fever or chills) Objective Vital Signs: Vital Signs - 24 hr 09/13/19 09/14/19 09/14/19 22:00 00:45 05:00 Temperature 36.6 C 36.8 C 36.8 C Heart Rate 77 Heart Rate [ 67 78 Brachial] Respiratory 18 16 18 Rate Blood Pressure 139/78 H 146/89 H [Right Brachial artery] O2 Saturation 99 97 97 09/14/19 09/14/19 09/14/19 08:20 12:08 16:13 Temperature 36.9 C 36.7 C 36.9 C Heart Rate Heart Rate [ 84 72 78 Brachial] Respiratory 18 18 18 Rate Blood Pressure 148/93 H 168/97 H 176/102 H [Right Brachial artery] O2 Saturation 97 99 98 Oxygen O2 Source Room air I&O (Last 24 Hrs): Intake and Output Totals x24h 09/12/19 09/13/19 09/14/19 23:59 23:59 23:59 Intake Total 2620.000 1138.334 Output Total 1000 700 Balance 1620.000 438.334 General: Alert, Oriented x3, Cooperative, Moderate distress HEENT: Atraumatic, PERRLA, EOMI Neck: Supple, No JVD Neuro: Alert, Focal Deficits (mild weakness on left side. Improving) Cardiovascular: Regular rate Respiratory: Chest non-tender, No respiratory distress, Breath sounds nml Abdomen: Normal bowel sounds, Soft, No tenderness Genitourinary: Other (Deferred) Rectal: Other (Deferred) Extremities: No edema Skin: No rashes - Results Results: Laboratory Results WBC 5.6 x10^3/uL (4.8-10.8) 09/14/19 04:54 RBC 3.84 10^6/uL (4.20-5.40) L 09/14/19 04:54 Hgb 12.1 g/dL (12.0-16.0) 09/14/19 04:54 Hct 37.6 % (37.0-47.0) 09/14/19 04:54 MCV 97.9 fL (81.0-99.0) 09/14/19 04:54 MCH 31.5 pg (27.0-31.0) H 09/14/19 04:54 MCHC 32.2 g/dL (32.0-36.0) 09/14/19 04:54 RDW 14.3 % (12.0-15.0) 09/14/19 04:54 Plt Count 298 10^3/uL (130-450) 09/14/19 04:54 MPV 9.8 fL (7.9-10.8) 09/14/19 04:54 Neut # (Auto) 2.7 10^3/uL (1.5-6.6) 09/14/19 04:54 Lymph # (Auto) 2.4 10^3/uL (1.5-3.5) 09/14/19 04:54 [place] # (Auto) 0.4 10^3/uL (0.0-1.0) 09/14/19 04:54 Eos # (Auto) 0.1 10^3/uL (0.0-0.7) 09/14/19 04:54 Baso # (Auto) 0.0 10^3/uL (0.0-0.1) 09/14/19 04:54 Absolute Nucleated RBC 0.00 x10^3/uL 09/14/19 04:54 Nucleated RBC % 0.0 /100WBC 09/14/19 04:54 Sodium 140 mmol/L (135-145) 09/14/19 04:54 Potassium 3.7 mmol/L (3.5-5.0) 09/14/19 04:54 Chloride 109 mmol/L (101-111) 09/14/19 04:54 Carbon Dioxide 23 mmol/L (21-32) 09/14/19 04:54 Anion Gap 8.0 (6-13) 09/14/19 04:54 BUN 9 mg/dL (6-20) 09/14/19 04:54 Creatinine 0.7 mg/dL (0.4-1.0) 09/14/19 04:54 Estimated GFR (MDRD) 86 (>89) L 09/14/19 04:54 Glucose 97 mg/dL (70-100) 09/14/19 04:54 Glycated Hemoglobin 5.2 % (4.6-6.2) 09/13/19 05:14 Estim Average Glucose 103 (70-100) H 09/13/19 05:14 Calcium 9.0 mg/dL (8.5-10.3) 09/14/19 04:54 Total Bilirubin 0.8 mg/dL (0.2-1.0) 09/12/19 22:30 AST 19 IU/L (10-42) 09/12/19 22:30 ALT 14 IU/L (10-60) 09/12/19 22:30 Alkaline Phosphatase 91 IU/L (42-121) 09/12/19 22:30 Troponin I High Sens 4.9 ng/L (2.3-14.8) 09/12/19 22:30 Total Protein 9.0 g/dL (6.7-8.2) H 09/12/19 22:30 Albumin 4.1 g/dL (3.2-5.5) 09/12/19 22:30 Globulin 4.9 g/dL (2.1-4.2) H 09/12/19 22:30 Albumin/Globulin Ratio 0.8 (1.0-2.2) L 09/12/19 22:30 Triglycerides 85 mg/dL (-149) 09/13/19 05:14 Cholesterol 168 mg/dL (-199) 09/13/19 05:14 LDL Cholesterol, Calc 112 mg/dL (-129) 09/13/19 05:14 VLDL Cholesterol 17 mg/dL 09/13/19 05:14 HDL Cholesterol 39 mg/dL (60-) L 09/13/19 05:14 LDL/HDL Ratio 2.9 (<4.4) 09/13/19 05:14 Cholesterol/HDL Ratio 4.3 (<4.4) 09/13/19 05:14 Lipase 34 U/L (22-51) 09/12/19 22:30 Urine Color YELLOW 09/13/19 01:20 Urine Clarity CLEAR (CLEAR) 09/13/19 01:20 Urine pH 5.5 PH (5.0-7.5) 09/13/19 01:20 Ur Specific [place] 1.025 (1.002-1.030) 09/13/19 01:20 Urine Protein TRACE mg/dL (NEGATIVE) 09/13/19 01:20 Urine Glucose (UA) NEGATIVE mg/dL (NEGATIVE) 09/13/19 01:20 Urine Ketones 15 mg/dL (NEGATIVE) H 09/13/19 01:20 Urine Occult Blood NEGATIVE (NEGATIVE) 09/13/19 01:20 Urine Nitrite NEGATIVE (NEGATIVE) 09/13/19 01:20 Urine Bilirubin NEGATIVE (NEGATIVE) 09/13/19 01:20 Urine Urobilinogen 0.2 (NORMAL) E.U./dL (NORMAL) 09/13/19 01:20 Ur Leukocyte Esterase TRACE (NEGATIVE) H 09/13/19 01:20 Urine RBC None Seen /HPF (0-5) 09/13/19 01:20 Urine WBC 4-5 /HPF (0-5) 09/13/19 01:20 Ur Squamous Epith Cells MOD Squamous (<= Few) H 09/13/19 01:20 Urine Bacteria Rare /HPF (None Seen) 09/13/19 01:20 Urine Casts 0-2 Hyaline Casts /LPF 09/13/19 01:20 Ur Microscopic Review INDICATED 09/13/19 01:20 Urine Culture Comments NOT INDICATED 09/13/19 01:20 ABX Reporting Has patient been on IV antibiotics over the past 48 hours?: No
[2019-09-14] MEDS ORDERED: LIDOCAINE-MPF 1% 5 ML VIAL ONE (23:04)
[2019-09-15 05:13] LABS: BASOPHILS % (AUTO) 0.3 %; EOSINOPHILS % (AUTO) 0.5 %; LYMPHOCYTES # (AUTO) 2.6 10^3/uL (1.5-3.5); LYMPHOCYTES % (AUTO) 38.7 %; MEAN CORPUSCULAR HEMOGLOBIN 32.8 pg (27.0-31.0); MEAN CORPUSCULAR HGB CONC 33.4 g/dL (32.0-36.0); MEAN CORPUSCULAR VOLUME 98.2 fL (81.0-99.0); MEAN PLATELET VOLUME 9.6 fL (7.9-10.8); MONOCYTES # (AUTO) 0.5 10^3/uL (0.0-1.0); MONOCYTES % (AUTO) 7.5 %; NEUTROPHILS # (AUTO) 3.5 10^3/uL (1.5-6.6); NEUTROPHILS % (AUTO) 52.7 %; PLT - PLATELET COUNT 297 10^3/uL (130-450); RED BLOOD COUNT 3.96 10^6/uL (4.20-5.40); RED CELL DISTRIBUTION WIDTH 14.1 % (12.0-15.0); WHITE BLOOD COUNT 6.7 x10^3/uL (4.8-10.8)
[2019-09-15 05:25] LABS: CALCIUM 9.3 mg/dL (8.5-10.3); CREATININE 0.9 mg/dL (0.4-1.0)
[2019-09-15] MEDS: oxyCODONE 5 MG TABLET PO PRN ×2 (05:34→16:10)
[2019-09-15] MEDS: MUPIROCIN TOP SCH ×3 (05:38→20:22)
[2019-09-15] MEDS: SENNA 8.6 MG TABLET PO SCH (08:58)
[2019-09-15] MEDS: SULFAMETH/TRIMETH DS 800/160 MG TABLET PO SCH ×2 (08:59→22:18)
[2019-09-15] MEDS: DOCUSATE SODIUM 250 MG CAPSULE PO SCH (08:59)
[2019-09-15] MEDS: POLYETHYLENE GLYCOL 3350 17 GM PACKET PO SCH (08:59)
[2019-09-15] MEDS: ASPIRIN 325 MG TABLET PO SCH (08:59)
[2019-09-15] MEDS: LISINOPRIL 5 MG TABLET PO SCH (08:59)
[2019-09-15] MEDS: SODIUM CHLORIDE FLUSH 0.9% 10 ML SYRINGE IVP SCH ×2 (09:00→16:04)
[2019-09-15] MEDS ORDERED: MUPIROCIN 2% OINT 22 GM TUBE TOP SCH (09:00)
[2019-09-15] MEDS ORDERED: TETANUS/DIPHTHERIA/PERTUSSIS 0.5 ML SYRINGE IM ONE ×2 (09:00→15:30)
[2019-09-15] MEDS: POTASSIUM CLAV PO SCH ×2 (09:07→22:18)
[2019-09-15] MEDS: AMOXICILLIN PO SCH ×2 (09:07→22:18)
[2019-09-15] MEDS: ACETAMINOPHEN 500 MG TABLET PO PRN (13:05)
--- NOTE | 2019-09-15 13:12 | Discharge Plan ---
"Discharge Plan for SNF / [facility] - Discharge Plan And Transition Orders Problem Reviewed?: Yes Disposition: 02 Transfer Acute Care Hosp Condition: Stable Allergies and Adverse Reactions: Allergies Allergy/AdvReac Type Severity Reaction Status Date / Time Penicillins Allergy Unknown Verified 09/12/19 20:51 Plan of Treatment: Acute rehab post stroke Care Goals: Maximize functional status - SNF / [facility] Transition Orders Admit to (Facility): [facility] Discharge Diagnosis: Acute to subacute cerebral infarct of Right internal capsule extending into right caudate body No hemorrhagic transformation Hypertension uncontrolled at home primary risk factor Stable -Deficits (speech and left sided weakness improving) - Evaluated by PT/OT and recommended acute rehab, accepted by [facility] Was not previously on aspirin -DAPT (per d/w Dr. Ishaan Dias neurologist at [facility]) x 21 days received 300 mg Plavix 09/15, 75 mg daily x 21 days thru 10/06 (unless any evidence of bleeding) -Started statin -Permissive hypertension; Resumed antihypertensive here at home regimen of kade nopril 10 mg daily Add or modify regimen if BP warrants over next few weeks Lupus; on medical history ; but not on medications Patient to follow up with slate trimmer on discharge from rehab --Right indext finger cellulitis completed course of Bactrim She received a tetanus shot 09/15 Mupirocin ointment BID to finger tip Medicare Certification Statement: I certify that Post Hospital halfway care is medically necessary on a continuing basis for any of the conditions for which she/he is receiving care during hospitalization. Notify PCP of admission and forward orders to primary provider for signature. Other Notification Orders: Call PCP immediately if patient develops dyspnea, chest pain/tightness or edema. House Bowel Program: Yes Additional Bowel Program Orders: If no BM after 2 days, nurse may give M.O.M. 30ml PO PRN and/or ducolax Supp 1 AL and/or RUPERT 250mg P.O., and/or senna 1-2 tabs PO. On day 3 nurse may give repeat above order until residents constipation is resolved. Oxygen Orders: none indicated Orthopedic Orders: none Medication Orders: PLEASE REFER TO THE DISCHARGE MEDICATION LIST. Insulin Orders?: No - Medications New Prescriptions: Aspirin [Adult Aspirin Regimen] 81 mg PO DAILY #60 tablet. Atorvastatin [Lipitor] 40 mg PO QPM #60 tablet Clopidogrel [Plavix] 75 mg PO DAILY #21 tablet - Diet Texture: Regular - Therapies | Activity Therapy: Evaluation | Treat if indicated: Speech, PT, OT Rehabilitation Potential: Maximize functional status, Return to independent living Activity: as per recommendations of rehab facility Weight Bearing: Full Weight Assistance Devices: Walker (Walker or as instructed by PT at rehab center)"
[2019-09-15] MEDS ORDERED: CLOPIDOGREL 300 MG TABLET PO ONE (13:15)
--- NOTE | 2019-09-15 14:26 | DISCHARGE SUMMARY ---
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 Titrate dose vs add agent if warranted Cellulitis Left index finger completed antibiotic - HPI History of Present Illness: Patient is a 58 y/o female who presented to the ED with left sided weakness. She woke up around 4 am on 09/12/19 with left sided weakness/numbness and thought it was because she slept on the arm. She went back to sleep and noticed that the symptoms persisted when she work up a few hours later. She felt unsteady on her feet. Her daughter reports that it appeared like her left arm was just hanging by her side. She presented to the ED on the evening of 09/12/19. As a result of her symptoms she is being admitted for further treatment. Initial CT in ED with no acute intracranial abnormality MRI confirmed acute to subacute infarct of posterior limb of R internal capsule into the R caudate. Stroke score at presentation; Patient was not previously on aspirin or statin, Primary risk factor is hypertension, uncontrolled w/ inconsistent use of lisinopril . Family history of stroke, and personal history of lupus, not currently symptomatic nor on treatment. - CONSULTS | PROCEDURES Consultations: spoke informally with Dr. Ishaan iDas [facility] neurology re: DAPT Procedures: none - HOSPITAL COURSE Hospital Course: Stroke;Right internal capsule into Right caudate; MRI brain confirmed acute to subacute area of cerebral infarction in posterior limb of the right internal capsule extending into the right caudate body. stable, clinically improving Uncontrolled hypertension likely primary cause, telemetry unremarkable, remote smoking hx (), non diabetic A1C 5.2 No significant findings on echo or tele, + FH stroke - Initially had significant left sided weakness and mild to moderate dysarthria, and a left pronater drift Evaluatd by Speech Pathology on 09/14; Able to continue regular diet and thin liquids PT/OT consulted and recommended acute rehab Accepted to [facility] Over the 2 days of waiting for insurance approval, continued to markedly improve PT eval again on 09/17; Patient improved to the point that no longer needs acute rehab Rx for front wheeled walker and will need referral from PCP for outpatient rehab Secondary stroke prevention -Not previously on ASA - On DAPT x 21 days per neurology thru 11/26 (discussed with Dr Ishaan Dias, [facility] neurology) then continue daily ASA 81 mg STOP Plavix 10/06/19 -Statin started - Control Blood pressure 2) Hypertension Patient admitted inconsistent compliance at home Elevated on presentation in setting of acute stroke 183/25, 171/100 Permissive hypertension initially Is on home lisinopril now at discharge; 122/83 , 133/89. Titrate dose vs add agent if warranted 3) History of lupus No current symptoms Patient to reestablish fur ironer after SNF discharge 4) L index finger wound post cellulitis Patient was on outpatient course of BActrim for L index finger cellulitis Continues to improve though distal tip tender. Considered I/D; Evaluated by supplier quality specialist Aby CHATMAN; Recommended not to bhavesh wound, continue mupiricin ointment, keep bandaid and finger cot Stopping bactrim on discharge - ALLERGIES Allergies/Adverse Reactions: Allergies Allergy/AdvReac Type Severity Reaction Status Date / Time Penicillins Allergy Unknown Verified 09/12/19 20:51 - MEDICATIONS Home Medications: Ambulatory Orders Medication Instructions Recorded Confirmed Lisinopril 10 mg PO DAILY 09/13/19 09/13/19 Mupirocin 1 applic TOP TIDX3D 09/13/19 09/13/19 Aspirin [Adult Aspirin Regimen] 81 mg PO DAILY #60 tablet. 09/15/19 Atorvastatin [Lipitor] 40 mg PO QPM #60 tablet 09/15/19 Clopidogrel [Plavix] 75 mg PO DAILY #21 tablet 09/15/19 Docusate Sodium 250Mg Capsule 250 - 500 mg PO DAILY capsule 09/15/19 [Colace 250Mg Capsule] Polyethylene Glycol 3350 [Miralax] 17 gm PO DAILY packet 09/15/19 Senna [Senokot] 8.6 - 17.2 mg PO DAILY tablet 09/15/19 - PHYSICAL EXAM AT DISCHARGE General Appearance: positive: No acute distress, Alert, Other (awake, alert, lying in bed, slept well, headache resolved (from 09/15) subjective improvement in dexterity, coordination of LUE) Eyes Bilateral: positive: Normal inspection, PERRL, EOMI Neck: positive: Nml inspection Respiratory: positive: Chest non-tender, No respiratory distress Cardiovascular: positive: Regular rate & rhythm, No murmur Abdomen: positive: Non-tender, Nml bowel sounds, No distention Back: positive: Nml inspection Skin: positive: Warm, Dry, Other (Left index finger in "finger cot" with bandaid. no drainage) Extremities: negative: Pedal edema Neurologic/Psychiatric: positive: Oriented x3, Motor nml (as above, A+O x 3, articulate, no dysarthria or word finding difficulty, CN 2-12 intact, subtle left oral droop NO longer evident, tongue midline, UE mucker operator,finger splaying adduction, abduction 5/5, LE bilat 5/5 dorsi, plantar flextion. ), Facial droop (initially extremely subtle Left facial droop (corner of mouth is no longer evident), symmetric otherwise), Other (articulate in speech) - LABS Result Diagrams: 09/17/19 05:15 09/17/19 05:15 Other Lab Results: Lipid panel TC 168 TG 85 LDL 112, HDL 35 - DIAGNOSTIC IMAGING Diagnostic Imaging Results Comments: Echo; 09/14/2019 Normal LV size and function with mild concentric LVH. EF 60-65% No WMA Valves unremarkable other than trace AR, mild MR, mild TR with normal RVSP [address] head 09/[address], no acute intracranial abnormality; See MRI MRI brain 09/14/2019 Diffusion restriction in posterior limb of R internal capsule extending into R caudate body c/w acute to subacute cerebral infarction Carotid duplex 09/13 Minimal predominantly left sided carotid artery plaquing In R and L carotid artery, no elevated velocities to suggest hemodynamically significant stenosis - TIME SPENT Time Spent in Discharge (Minutes): 35
--- NOTE | 2019-09-15 16:41 | PROVIDER PROGRESS NOTE ---
Subjective - Prog Note Date Prog Note Date: 09/15/19 Prog Note Time: 16:40 (seeen ~ 8am, and 12pm) - Subjective Pt reports feeling: Improved Subjective: finds speech nearly normal left weakness much improved c/o headache late in day (per RN new, but patient reports she has had daily "when gets up" and has hx migraine requestes just tylenol, (no new deficits w this FRY) Current Medications - Current Medications Current Medications: Active Medications Acetaminophen (Tylenol) 500 mg PO Q4HR PRN PRN Reason: Pain or Fever > 38C (100.4F) Last Admin: 09/15/19 13:05 Dose: 500 mg Aspirin (Ecotrin) 81 mg PO DAILYWM TIANA Atorvastatin Calcium (Lipitor) 40 mg PO QPM [facility] Last Admin: 09/14/19 21:44 Dose: 40 mg Clopidogrel Bisulfate (Plavix) 75 mg PO DAILY [facility] Stop: 10/06/19 09:01 Docusate Sodium (Colace 250mg Capsule) 250 - 500 mg PO DAILY [facility] Last Admin: 09/15/19 08:59 Dose: 250 mg Sodium Chloride (Normal Saline 0.9%) 1,000 mls @ 0 mls/hr IV .Q0M [facility] Last Infusion: 09/14/19 20:37 Dose: 0 mls/hr Lisinopril (Zestril) 10 mg PO DAILY [facility] Last Admin: 09/15/19 08:59 Dose: 10 mg Mupirocin (Bactroban 2% Oint) 1 applic TOP BID [facility] Last Admin: 09/15/19 09:09 Dose: 1 applic Oxycodone HCl (Roxicodone) 5 mg PO Q6HR PRN PRN Reason: PAIN Last Admin: 09/15/19 16:10 Dose: 5 mg Amoxicillin/Potassium Clav [Amox -Clav 875-125 Mg Tablet] 1 Tab) 1 each PO BID TIANA Stop: 09/16/19 21:01 Last Admin: 09/15/19 09:07 Dose: 1 each (Mupirocin [ Mupirocin] Ointment 1 Applic) 1 each TOP TID TIANA Stop: 09/16/19 22:01 Last Admin: 09/15/19 14:33 Dose: 1 each Polyethylene Glycol (Miralax) 17 gm PO DAILY [facility] Last Admin: 09/15/19 08:59 Dose: 17 gm Senna (Senokot) 8.6 - 17.2 mg PO DAILY [facility] Last Admin: 09/15/19 08:58 Dose: 8.6 mg Sodium Chloride (Normal Saline Flush 0.9%) 10 ml IVP PRN PRN PRN Reason: NEEDED PER PROVIDER ORDERS Sodium Chloride (Normal Saline Flush 0.9%) 10 ml IVP 0100,0900,1700 [facility] Last Admin: 09/15/19 16:04 Dose: 10 ml Trimethoprim/Sulfamethoxazole (Bactrim Ds 800/160) 1 tab PO BID TIANA Stop: 09/21/19 21:01 Last Admin: 09/15/19 08:59 Dose: 1 tab Lisinopril 10 mg PO DAILY 09/13/19 Mupirocin 1 applic TOP TIDX3D 09/13/19 Sulfamethoxazole/Trimethoprim [Sulfamethoxazole-Tmp Ds Tablet] 1 tab PO BIDX3D 09/13/19 Objective - Vital Signs/Intake & Output Reviewed Vital Signs: Yes Vital Signs: Vital Signs x48h Temp Pulse Resp BP Pulse Ox 09/15/19 16:30 75 18 152/94 H 100 09/15/19 16:04 36.9 C 77 18 121/81 H 95 09/15/19 11:35 36.9 C 68 16 136/78 H 100 Intake & Output: Intake & Output 09/12/19 09/13/19 09/14/19 09/15/19 23:59 23:59 23:59 23:59 Intake Total 2620.000 8046.925 1463 Output Total 1000 700 350 Balance 8655.486 7850.334 1610 - Objective General Appearance: positive: No acute distress, Alert, Other (awake, articulate, very slight barely perceptible Left mouth droop , smile is symmetric) Eyes Bilateral: positive: Normal inspection Neck: positive: Nml inspection Respiratory: positive: Chest non-tender, No respiratory distress, Breath sounds nml Cardiovascular: positive: Regular rate & rhythm, No murmur Abdomen: positive: Non-tender, Nml bowel sounds, No distention Skin: positive: Warm, Dry Extremities: negative: Pedal edema Neurologic/Psychiatric: positive: Oriented x3, Motor nml (Seen standing up at sink doing oral care, upper and lower left extremity strength 4+ / 5 (left machine stapler is 5/5) CN 2-12 intact, no swallow deficit, as above barely evident left oral droop not visible w/ smile) - Lab Results Fish Bones: 09/15/19 04:58 09/15/19 04:58 Other Labs: Lab Results x24hrs 09/15/19 09/15/19 Range/Units 04:58 04:58 WBC 6.7 (4.8-10.8) x10^3/uL RBC 3.96 L (4.20-5.40) 10^6/uL Hgb 13.0 (12.0-16.0) g/dL Hct 38.9 (37.0-47.0) % MCV 98.2 (81.0-99.0) fL MCH 32.8 H (27.0-31.0) pg MCHC 33.4 (32.0-36.0) g/dL RDW 14.1 (12.0-15.0) % Plt Count 297 (130-450) 10^3/uL MPV 9.6 (7.9-10.8) fL Neut # (Auto) 3.5 (1.5-6.6) 10^3/uL Lymph # (Auto) 2.6 (1.5-3.5) 10^3/uL [place] # (Auto) 0.5 (0.0-1.0) 10^3/uL Eos # (Auto) 0.0 (0.0-0.7) 10^3/uL Baso # (Auto) 0.0 (0.0-0.1) 10^3/uL Absolute Nucleated RBC 0.00 x10^3/uL Nucleated RBC % 0.0 /100WBC Sodium 138 (135-145) mmol/L Potassium 3.6 (3.5-5.0) mmol/L Chloride 106 (101-111) mmol/L Carbon Dioxide 23 (21-32) mmol/L Anion Gap 9.0 (6-13) BUN 10 (6-20) mg/dL Creatinine 0.9 (0.4-1.0) mg/dL Estimated GFR (MDRD) 65 L (>89) Glucose 103 H (70-100) mg/dL Calcium 9.3 (8.5-10.3) mg/dL Assessment/Plan - Problem List (1) Cerebrovascular accident (CVA) Impression: 1) Cerebrovascular accident (CVA) Qualifiers: Qualified Code(s): I63.9 - Cerebral infarction, unspecified Assessment/Plan: MRI brain confirmed acute to subacute area of cerebral infarction in posterior limb of the right internal capsule extending into the right caudate body. Likely r/t uncontrolled HTN (inconsistent w/ her lisinopril) Deficits persistently improving Not previously on ASA As per current recs is now on DAPT after a 300 mg plavix load today; discussed with Dr. Ishaan Dias at [facility] neuro Continue ASA at 81 mg daily (was on 325) DAPT thru 10/06 (21 days) started statin on presentation Once OT evaluates patient today will determine if candidate for inpatient rehab vs home w/ HHPT >>> Addendum [facility] has accepted patient, per , awaiting insurance info; likely d/c tomorrow (2) History of lupus Assessment/Plan: Not on any treatment currently Yet to re-establish with her software testing specialist (3) Abrasion of left index finger with infection Assessment/Plan: Patient took 6/10 days of bactrim. Prior provider planned longer course but after reeval by video specialist, will continue prior course Seen by mortgage loan specialist today; she did not feel lancing needed continue mupirocin, complete course of Bactrim Finger "cot" placed by video specialist Administer tetanus shot in the am (got today) Pain management 4 Headache consistent with patients migraine per her no associated neuro deficits resolved with single tylenol (confirmed at 5p) Qualifiers: Qualified Code(s): I63.9 - Cerebral infarction, unspecified
[2019-09-15] MEDS: ATORVASTATIN 40 MG TABLET PO SCH (21:01)
[2019-09-15] MEDS ORDERED: ONDANSETRON ODT 4 MG TABLET TL PRN (21:42)
[2019-09-15] MEDS ORDERED: ONDANSETRON 4 MG/2 ML VIAL IVP PRN (21:42)
[2019-09-16] MEDS: SODIUM CHLORIDE FLUSH 0.9% 10 ML SYRINGE IVP SCH ×3 (00:47→16:50)
[2019-09-16 04:52] LABS: BASOPHILS % (AUTO) 0.3 %; EOSINOPHILS # (AUTO) 0.1 10^3/uL (0.0-0.7); EOSINOPHILS % (AUTO) 0.9 %; HGB - HEMOGLOBIN 13.2 g/dL (12.0-16.0); LYMPHOCYTES # (AUTO) 2.4 10^3/uL (1.5-3.5); LYMPHOCYTES % (AUTO) 35.6 %; MEAN CORPUSCULAR HEMOGLOBIN 32.8 pg (27.0-31.0); MEAN CORPUSCULAR HGB CONC 33.2 g/dL (32.0-36.0); MEAN PLATELET VOLUME 9.7 fL (7.9-10.8); MONOCYTES # (AUTO) 0.6 10^3/uL (0.0-1.0); MONOCYTES % (AUTO) 8.5 %; NEUTROPHILS # (AUTO) 3.7 10^3/uL (1.5-6.6); NEUTROPHILS % (AUTO) 54.1 %; PLT - PLATELET COUNT 303 10^3/uL (130-450); RED BLOOD COUNT 4.02 10^6/uL (4.20-5.40); RED CELL DISTRIBUTION WIDTH 14.3 % (12.0-15.0); WHITE BLOOD COUNT 6.8 x10^3/uL (4.8-10.8)
[2019-09-16 05:02] LABS: CALCIUM 9.9 mg/dL (8.5-10.3); CREATININE 1.2 mg/dL (0.4-1.0)
[2019-09-16] MEDS: MUPIROCIN TOP SCH ×3 (06:33→20:16)
[2019-09-16] MEDS: SULFAMETH/TRIMETH DS 800/160 MG TABLET PO SCH (08:54)
[2019-09-16] MEDS: POLYETHYLENE GLYCOL 3350 17 GM PACKET PO SCH (08:54)
[2019-09-16] MEDS: ASPIRIN EC 81 MG TABLET PO SCH (08:54)
[2019-09-16] MEDS: CLOPIDOGREL 75 MG TABLET PO SCH (08:54)
[2019-09-16] MEDS: DOCUSATE SODIUM 250 MG CAPSULE PO SCH (08:54)
[2019-09-16] MEDS: SENNA 8.6 MG TABLET PO SCH (08:54)
[2019-09-16] MEDS: LISINOPRIL 5 MG TABLET PO SCH (08:54)
[2019-09-16] MEDS: AMOXICILLIN PO SCH ×2 (08:55→20:15)
[2019-09-16] MEDS: POTASSIUM CLAV PO SCH ×2 (08:55→20:15)
[2019-09-16] MEDS: ACETAMINOPHEN 500 MG TABLET PO PRN (11:09)
--- NOTE | 2019-09-16 17:34 | PROVIDER PROGRESS NOTE ---
Subjective - Prog Note Date Prog Note Date: 09/16/19 Prog Note Time: 17:34 - Subjective Subjective: notes headache from 09/15 has not recurred/ is resolved No new deficits feeling stronger, still notes her left knee will buckle if not paying attention Current Medications - Current Medications Current Medications: Active Medications Generic Name Dose Route Start Last Admin Trade Name Freq PRN Reason Stop Dose Admin Acetaminophen 500 mg 09/13/19 10:30 09/16/19 11:09 Tylenol PO 500 mg Q4HR PRN Administration Pain or Fever > 38C (100.4F) Aspirin 81 mg 09/16/19 08:00 09/16/19 08:54 Ecotrin PO 81 mg DAILYWM TIANA Administration Atorvastatin Calcium 40 mg 09/13/19 21:00 09/15/19 21:01 Lipitor PO 40 mg QPM TIANA Administration Clopidogrel Bisulfate 75 mg 09/16/19 09:00 09/16/19 08:54 Plavix PO 10/06/19 09:01 75 mg DAILY TIANA Administration Docusate Sodium 250 - 500 mg 09/15/19 09:00 09/16/19 08:54 Colace 250mg Capsule PO 250 mg DAILY TIANA Administration Sodium Chloride 1,000 mls @ 0 mls/hr 09/13/19 16:02 09/14/19 20:37 Normal Saline 0.9% IV 0 mls/hr .Q0M TIANA Infusion TKO Lisinopril 10 mg 09/14/19 09:00 09/16/19 08:54 Zestril PO 10 mg DAILY TIANA Administration Ondansetron HCl 4 mg 09/15/19 21:42 09/15/19 22:13 Zofran Inj IVP 4 mg Q6HR PRN Administration Nausea / Vomiting Ondansetron HCl 4 mg 09/15/19 21:42 09/16/19 11:14 Zofran Odt TL 4 mg Q6HR PRN Administration Nausea / Vomiting Oxycodone HCl 5 mg 09/13/19 16:02 09/15/19 16:10 Roxicodone PO 5 mg Q6HR PRN Administration PAIN Amoxicillin/ 1 each 09/13/19 21:00 09/16/19 08:55 Potassium Clav [Amox PO 09/16/19 21:01 1 each -Clav 875-125 Mg BID TIANA Administration Tablet] 1 Tab) (Mupirocin [ 1 each 09/13/19 22:00 09/16/19 14:08 Mupirocin] Ointment TOP 09/16/19 22:01 Not Given 1 Applic) TID TIANA Polyethylene Glycol 17 gm 09/15/19 09:00 09/16/19 08:54 Miralax PO 17 gm DAILY TIANA Administration Senna 8.6 - 17.2 mg 09/15/19 09:00 09/16/19 08:54 Senokot PO 8.6 mg DAILY TIANA Administration Sodium Chloride 10 ml 09/13/19 02:24 09/15/19 22:12 Normal Saline Flush 0.9% IVP 10 ml PRN PRN Administration NEEDED PER PROVIDER ORDERS Sodium Chloride 10 ml 09/13/19 09:00 09/16/19 16:50 Normal Saline Flush 0.9% IVP 10 ml 0100,0900,1700 TIANA Administration Trimethoprim/Sulfamethoxazole 1 tab 09/15/19 09:00 09/16/19 08:54 Bactrim Ds 800/160 PO 09/21/19 21:01 1 tab BID TIANA Administration Lisinopril 10 mg PO DAILY 09/13/19 Mupirocin 1 applic TOP TIDX3D 09/13/19 Objective - Vital Signs/Intake & Output Reviewed Vital Signs: Yes Vital Signs: Vital Signs x48h Temp Pulse Resp BP Pulse Ox 09/16/19 15:31 36.9 C 84 16 117/79 99 Intake & Output: Intake & Output 09/13/19 09/14/19 09/15/19 09/16/19 23:59 23:59 23:59 23:59 Intake Total 2620.000 9697.339 7585 590 Output Total 1530 115 4006 Balance 7281.976 0091.334 1937 590 - Objective General Appearance: positive: No acute distress, Other (awake, alert, seen up in chair this morning eating breakfast (better appetite than 09/14), at bedside) Eyes Bilateral: positive: Normal inspection, PERRL, EOMI Respiratory: positive: No respiratory distress, Breath sounds nml Cardiovascular: positive: Regular rate & rhythm, No murmur Abdomen: positive: Nml bowel sounds, No distention. negative: Tenderness Skin: positive: Warm, Dry Extremities: negative: Pedal edema Neurologic/Psychiatric: positive: Oriented x3, Other (CN 2-12 intact, EOM's inta ct possible nominal left droop of left mouth, tongue midline, articulate speech, upper extremity strength 5/5 bilaterally, LE strength 5/5 bilaterally, able to use utensils to eat.) - Lab Results Fish Bones: 09/17/19 05:15 09/17/19 05:15 Other Labs: Lab Results x24hrs 09/16/19 09/16/19 Range/Units 04:35 04:35 WBC 6.8 (4.8-10.8) x10^3/uL RBC 4.02 L (4.20-5.40) 10^6/uL Hgb 13.2 (12.0-16.0) g/dL Hct 39.8 (37.0-47.0) % MCV 99.0 (81.0-99.0) fL MCH 32.8 H (27.0-31.0) pg MCHC 33.2 (32.0-36.0) g/dL RDW 14.3 (12.0-15.0) % Plt Count 303 (130-450) 10^3/uL MPV 9.7 (7.9-10.8) fL Neut # (Auto) 3.7 (1.5-6.6) 10^3/uL Lymph # (Auto) 2.4 (1.5-3.5) 10^3/uL [place] # (Auto) 0.6 (0.0-1.0) 10^3/uL Eos # (Auto) 0.1 (0.0-0.7) 10^3/uL Baso # (Auto) 0.0 (0.0-0.1) 10^3/uL Absolute Nucleated RBC 0.00 x10^3/uL Nucleated RBC % 0.0 /100WBC Sodium 140 (135-145) mmol/L Potassium 4.0 (3.5-5.0) mmol/L Chloride 101 (101-111) mmol/L Carbon Dioxide 28 (21-32) mmol/L Anion Gap 11.0 (6-13) BUN 12 (6-20) mg/dL Creatinine 1.2 H (0.4-1.0) mg/dL Estimated GFR (MDRD) 46 L (>89) Glucose 102 H (70-100) mg/dL Calcium 9.9 (8.5-10.3) mg/dL Assessment/Plan - Problem List (1) Cerebrovascular accident (CVA) Impression: (1) Cerebrovascular accident (CVA) Assessment/Plan: MRI brain confirmed acute to subacute area of cerebral infarction in posterior limb of the right internal capsule extending into the right caudate body. Likely r/t uncontrolled HTN (inconsistent w/ her lisinopril at home) Deficits continue to improve Not previously on ASA As per current recs is now on DAPT after a 300 mg plavix load 09/15; discussed with Dr. Ishaan Dias at [facility] neuro on 09/15 Continue ASA at 81 mg daily DAPT thru 10/06 (21 days) started statin on presentation [facility] has accepted patient, but still awaiting insurance approval (per patient she just started that insurance) (2) History of lupus Assessment/Plan: Not on any treatment currently Yet to re-establish with her collector of aquarium specimens (3) Abrasion of left index finger with infection Assessment/Plan: Patient took 6/10 days of bactrim. Prior provider planned longer course but after reeval by medical front desk specialist, will continue prior course and stopping bactrim given Cr 1.2. Seen by school library media specialist 09/15; she did not feel lancing needed continue mupirocin, complete course of Bactrim as noted Finger "cot" placed by medical front desk specialist Administer tetanus shot in the am (got 09/15) 4 Headache Resolved 09/15 consistent with patients migraine per her no associated neuro deficits resolved with single tylenol (confirmed at 5p) Qualifiers: Qualified Code(s): I63.9 - Cerebral infarction, unspecified
[2019-09-16] MEDS: ATORVASTATIN 40 MG TABLET PO SCH (20:15)
[2019-09-17] MEDS: SODIUM CHLORIDE FLUSH 0.9% 10 ML SYRINGE IVP SCH ×2 (00:06→09:26)
[2019-09-17 05:23] LABS: BASOPHILS % (AUTO) 0.3 %; EOSINOPHILS # (AUTO) 0.1 10^3/uL (0.0-0.7); EOSINOPHILS % (AUTO) 0.9 %; HGB - HEMOGLOBIN 13.2 g/dL (12.0-16.0); LYMPHOCYTES # (AUTO) 2.3 10^3/uL (1.5-3.5); LYMPHOCYTES % (AUTO) 36.1 %; MEAN CORPUSCULAR HEMOGLOBIN 31.7 pg (27.0-31.0); MEAN CORPUSCULAR HGB CONC 32.6 g/dL (32.0-36.0); MEAN CORPUSCULAR VOLUME 97.4 fL (81.0-99.0); MEAN PLATELET VOLUME 9.4 fL (7.9-10.8); MONOCYTES # (AUTO) 0.6 10^3/uL (0.0-1.0); MONOCYTES % (AUTO) 8.7 %; NEUTROPHILS # (AUTO) 3.4 10^3/uL (1.5-6.6); NEUTROPHILS % (AUTO) 53.8 %; PLT - PLATELET COUNT 300 10^3/uL (130-450); RED BLOOD COUNT 4.16 10^6/uL (4.20-5.40); RED CELL DISTRIBUTION WIDTH 14.5 % (12.0-15.0); WHITE BLOOD COUNT 6.4 x10^3/uL (4.8-10.8)
[2019-09-17 05:31] LABS: CALCIUM 9.7 mg/dL (8.5-10.3); CREATININE 1.1 mg/dL (0.4-1.0)
[2019-09-17 07:24] VITALS: BP 133/90
[2019-09-17] MEDS: ASPIRIN EC 81 MG TABLET PO SCH (09:25)
[2019-09-17] MEDS: DOCUSATE SODIUM 250 MG CAPSULE PO SCH (09:25)
[2019-09-17] MEDS: LISINOPRIL 5 MG TABLET PO SCH (09:26)
[2019-09-17] MEDS: SENNA 8.6 MG TABLET PO SCH (09:26)
[2019-09-17] MEDS: POLYETHYLENE GLYCOL 3350 17 GM PACKET PO SCH (09:26)
[2019-09-17] MEDS: CLOPIDOGREL 75 MG TABLET PO SCH (09:26)
--- NOTE | 2019-09-17 10:41 | Discharge Plan ---
Discharge Plan Problem Reviewed?: Yes Disposition: Home, Self Care Condition: Stable Prescriptions: Aspirin [Adult Aspirin Regimen] 81 mg PO DAILY #60 tablet. Atorvastatin [Lipitor] 40 mg PO QPM #60 tablet Clopidogrel [Plavix] 75 mg PO DAILY #21 tablet Diet: Low Sodium Shower Restrictions: No Driving Restrictions: Yes (until you are at baseline) Assistance Devices: Walker Weight Bearing: outpatient PT will need referral Instruction Topics: Diphtheria/Tetanus Toxoids Pertussis Vaccine DTP injection Plan of Treatment: Return to full functional status post stroke Additional Instructions or Follow Up instructions: 31) Stroke; you came to the hospital with abrupt onset left sided weakness which proved to be a stroke Brain imaging showed this to be an: Acute to subacute cerebral infarct of Right internal capsule extending into right caudate body Uncontrolled high blood pressure was likley the primary risk factor -Deficits (speech and left sided weakness improving progressively) - You were evaluated by PT/OT and recommended acute rehab, and you were [facility] -While awaiting insurance approval you improved to the point that Physical therapist (PT) indicated safe to go home with out patient rehab. PCP will need to refer for outpatient physical therapy OT initially recommended acute rehab as well but you progressed rapidly to the degree you do not need this prescription was written for Front wheeled walker 2) Secondary prevention of recurrent stoke You were not previously on aspirin Both aspirin and Plavix (two antiplatelet drugs) were started The plavix is only for 21 days (stop on 10/06) Baby aspirin (81mg) will be a care home medication -You also started a high intensity statin; this will be a moth exterminator medication -Your blood pressure was not well controlled Your lisinopril needs to be taken consistently. On the lisinopril 10 mg your blood pressure is reasonably controlled (most recent 133/89, 117/79, 130/86, 133/90 Your PCP will adjust the dose if needed Lupus; on medical history ; but not on medications Patient to follow up with generator operator on discharge from rehab --Right index finger cellulitis bactrim is complete tetanus shot 09/15 reliability specialist recommended, Mupirocin ointment BID to finger until fully resolved No Smoking: If you smoke, Please STOP! Call for help. Follow-up with: Saskia Arzola MD [Primary Care Provider] - 1 Week (Patient will need referral for outpatient PT s/p stroke She improved progressively and did not require d/c to acute rehab )
== END 2019-09-17 14:55 | disposition home or self-care (01) | DRG 65 ==
LOC: ED 20:44 → MS3 09-13 02:10 → MS2 09-16 16:28
PROVIDERS: ADMIT Internal Medicine; ATTEND Nurse Practitioner
DX: I63.9 Cerebral infarction, unspecified (principal); G81.94 Hemiplegia, unspecified affecting left nondominant side; R20.0 Anesthesia of skin; R47.81 Slurred speech; L03.011 Cellulitis of right finger; S60.41 Abrasion of fingers; R40.2412 Glasgow coma scale score 13-15, at arrival to emergency department; R47.1 Dysarthria and anarthria; R29.707 NIHSS score 7; R27.0 Ataxia, unspecified; R29.810 Facial weakness; R51 Headache; I10 Essential (primary) hypertension; M32.9 Systemic lupus erythematosus, unspecified; T46.4X6A Underdosing of angiotensin-converting-enzyme inhibitors, initial encounter; Y92.009 Unspecified place in unspecified non-institutional (private) residence as the place of occurrence of the external cause; Z91.128 Patient's intentional underdosing of medication regimen for other reason; Z87.891 Personal history of nicotine dependence; Z87.39 Personal history of other diseases of the musculoskeletal system and connective tissue; Z86.69 Personal history of other diseases of the nervous system and sense organs; Z82.3 Family history of stroke; Z23 Encounter for immunization
CPT/HCPCS: 36415; 70450; 70551; 71046; 80048; 80053; 80061; 81001; 83036; 83690; 84484; 85025; 90715; 92610; 93005; 93306; 93880; 97110; 97162; 97166; 97530; 99284; 99285; A9270; Q0162; 81003; 83721; 87086

== ENCOUNTER 2019-11-17 07:56 | Outpatient (CLI) | payer MEDICAID ==
[2019-11-17 08:16] LABS: CALCIUM 9.8 mg/dL (8.5-10.3); CREATININE 1.1 mg/dL (0.4-1.0)
[2019-11-17] MEDS ORDERED: GADOBUTROL 7.5 MMOL/7.5 ML VIAL ONE (09:21)
[2019-11-17] MEDS ORDERED: GADOBUTROL 7.5 MMOL/7.5 ML VIAL IVP ONE (10:01)
--- NOTE | 2019-11-17 10:58 | MRI Report ---
Reason: CELLULITIS DIGIT Procedure Date: 11/17/2019 Accession Number: [id number] / [id number] Procedure: MRI - Finger(s) RT W/WO CPT Code: Final Report FULL RESULT: EXAM: RIGHT HAND SECOND DIGIT MRI WITHOUT AND WITH CONTRAST EXAM DATE: 11/17/2019 10:14 AM. CLINICAL HISTORY: Cellulitis at the tip of the second digit since August 2019. COMPARISON: None. TECHNIQUE: Multiplanar, multisequence T1-weighted and fluid-sensitive sequences of the finger before and after administration of intravenous contrast. IV contrast: 7 cc Gadavist. Other: None. FINDINGS: Bones: No fractures or subluxations. No marrow edema or abnormal enhancement. No bone lesions. Cartilage: The articular cartilage is unremarkable. Ligaments: The radial and ulnar collateral ligaments are intact. Tendons: The flexor and extensor tendons are unremarkable. The visualized pulleys are intact. Musculature: No edema or fatty atrophy. Other: No joint effusions or capsular rupture. There is a minimal amount of subcutaneous edema and enhancement at the distal aspect of the second digit. No evidence of abscess. No abnormal soft tissue mass. IMPRESSION: 1. Minimal amount of subcutaneous edema and enhancement at the distal aspect of the second digit. 2. Otherwise, unremarkable exam. RADIA
== END 2019-11-17 07:57 | disposition home or self-care (01) ==
LOC: DI 07:56
PROVIDERS: ATTEND Registered Nurse
DX: L03.011 Cellulitis of right finger (principal); I10 Essential (primary) hypertension
CPT/HCPCS: 36415; 73220; 80048; A9585

== ENCOUNTER 2021-03-30 11:26 | Outpatient (CLI) | payer MEDICAID ==
[2021-03-30 15:24] LABS: BASOPHILS % (AUTO) 0.5 %; EOSINOPHILS # (AUTO) 0.2 10^3/uL (0.0-0.7); EOSINOPHILS % (AUTO) 2.9 %; HCT - HEMATOCRIT 40.6 % (37.0-47.0); LYMPHOCYTES # (AUTO) 1.1 10^3/uL (1.5-3.5); LYMPHOCYTES % (AUTO) 19.2 %; MEAN CORPUSCULAR HEMOGLOBIN 32.3 pg (27.0-31.0); MEAN CORPUSCULAR VOLUME 100.7 fL (81.0-99.0); MEAN PLATELET VOLUME 11.7 fL (7.9-10.8); MONOCYTES # (AUTO) 0.4 10^3/uL (0.0-1.0); MONOCYTES % (AUTO) 7.4 %; NEUTROPHILS # (AUTO) 4.1 10^3/uL (1.5-6.6); NEUTROPHILS % (AUTO) 69.7 %; PLT - PLATELET COUNT 183 10^3/uL (130-450); RED BLOOD COUNT 4.03 10^6/uL (4.20-5.40); RED CELL DISTRIBUTION WIDTH 14.5 % (12.0-15.0); WHITE BLOOD COUNT 5.8 x10^3/uL (4.8-10.8)
[2021-03-30 15:24] LABS: ABSOLUTE RETICS # AUTO 0.068 10^6/uL (0.020-0.110); RED BLOOD COUNT 4.12 10^6/uL (4.20-5.40); RETICULOCYTE COUNT % (AUTO) 1.65 % (0.5-2.3)
[2021-03-30 15:38] LABS: % IRON SATURATION 16 % (20-50); ALBUMIN 4.1 g/dL (3.2-5.5); ALBUMIN/GLOBULIN RATIO 1.1 (1.0-2.2); ALKALINE PHOSPHATASE 92 IU/L (42-121); ALT ALANINE AMINOTRANSFERASE 94 IU/L (10-60); AST ASPARTATE AMINOTRANSFERASE 102 IU/L (10-42); BILIRUBIN,TOTAL 0.7 mg/dL (0.2-1.0); BUN - BLOOD UREA NITROGEN 9 mg/dL (6-20); CALCIUM 9.5 mg/dL (8.5-10.3); CARBON DIOXIDE - CO2 25 mmol/L (21-32); CHLORIDE 109 mmol/L (101-111); CHOLESTEROL 118 mg/dL; CREATININE 0.9 mg/dL (0.4-1.0); GFR - MDRD 64 (>89); GLUCOSE 84 mg/dL (70-100); HDL CHOLESTEROL 58 mg/dL; IRON 66 ug/dL (28-170); LDL CHOLESTEROL,CALCULATED 49 mg/dL; LDL/HDL RATIO 0.8 (<4.4); POTASSIUM 4.3 mmol/L (3.5-5.0); SODIUM 142 mmol/L (135-145); TOTAL IRON BINDING CAPACITY 402 ug/dL (250-450); TOTAL PROTEIN 7.9 g/dL (6.7-8.2); TRANSFERRIN 287 mg/dL (192-382); TRIGLYCERIDES 54 mg/dL; VLDL CHOLESTEROL 11 mg/dL
[2021-03-30 15:48] LABS: THYROID STIMULATING HORMONE 1.74 uIU/mL (0.34-5.60)
[2021-03-30 16:00] LABS: FOLATE 3.77 ng/mL (5.90 - >24.8)
--- NOTE | 2021-03-30 16:58 | XRAY Report ---
PROCEDURE: Abdomen 2 View X-Ray INDICATIONS: FATIGUE, LOW BACK PAIN, TARRY STOOLS TECHNIQUE: 2 views of the abdomen were acquired. COMPARISON: None FINDINGS: Surgical changes and devices: None. Bowel: No pneumoperitoneum. The bowel gas pattern is nonspecific. Soft tissues: No masses; visualized solid organ contours appear normal in size. No suspicious abdom inal calcifications. Bones: No suspicious bony abnormalities. Mild multilevel degenerative disc changes in the spine. Mil d bilateral hip arthritis. IMPRESSION: Nonspecific bowel gas pattern without definite evidence of obstruction. If patient's symptoms persist or worsen, consider CT scan of the abdomen and pelvis for further evaluation. No significant stool burden in the colon. Reviewed by: Julieta Klein MD, PhD on 03/30/2021 4:57 PM PDT Approved by: Julieta Klein MD, PhD on 03/30/2021 4:57 PM PDT Station ID: [id number]
== END 2021-03-30 11:27 | disposition home or self-care (01) ==
LOC: DI.S 11:26
PROVIDERS: ATTEND Registered Nurse
DX: R53.83 Other fatigue (principal); M54.5 Low back pain; K92.1 Melena; Z79.899 Other long term (current) drug therapy; F41.8 Other specified anxiety disorders; M32.9 Systemic lupus erythematosus, unspecified; J45.909 Unspecified asthma, uncomplicated; K21.9 Gastro-esophageal reflux disease without esophagitis
CPT/HCPCS: 36415; 80053; 80061; 81599; 82607; 82728; 82746; 83020; 83540; 83721; 84443; 84466; 85014; 85018; 85025; 85041; 85045

== ENCOUNTER 2021-04-13 11:30 | Outpatient (CLI) | payer MEDICAID ==
[2021-04-13 20:33] LABS: H. PYLORIS ANTIGEN STL NEGATIVE (Negative)
== END 2021-04-13 23:59 | disposition home or self-care (01) ==
LOC: LAB.R 11:30
PROVIDERS: ATTEND Registered Nurse
DX: R10.9 Unspecified abdominal pain (principal)
CPT/HCPCS: 81599; 83630; 87045; 87046; 87177; 87209; 87338; 87427

== ENCOUNTER 2021-04-14 08:00 | Outpatient (CLI) | payer MEDICAID ==
[2021-04-14 20:34] LABS: BILIRUBIN,URINE NEGATIVE (NEGATIVE); GLUCOSE, URINE (UA) NEGATIVE (NEGATIVE); KETONES,URINE (UA) NEGATIVE (NEGATIVE); LEUKOCYTE ESTERASE, URINE TRACE (NEGATIVE); NITRITE,URINE NEGATIVE (NEGATIVE); OCCULT BLOOD,URINE NEGATIVE (NEGATIVE); PROTEIN,URINE NEGATIVE (NEGATIVE); UROBILINOGEN,URINE 0.2 (NORMAL) E.U./dL (NORMAL)
[2021-04-14 20:37] LABS: CLARITY,URINE CLEAR (CLEAR)
[2021-04-14 21:00] LABS: BACTERIA,URINE Few /HPF (None Seen); RBC,URINE 0-5 /HPF (0-5); SQUAMOUS EPITHELIAL CELL,UR FEW Squamous (<= Few)
== END 2021-04-14 23:59 | disposition home or self-care (01) ==
LOC: LAB.S 08:00
PROVIDERS: ATTEND Registered Nurse
DX: R10.9 Unspecified abdominal pain (principal); M54.5 Low back pain
CPT/HCPCS: 81001; 87086; 87181

== ENCOUNTER 2022-09-21 08:00 | Outpatient (CLI) | payer MEDICAID ==
--- NOTE | 2022-09-21 17:13 | XRAY Report ---
PROCEDURE: Lumbar Spine 2 View INDICATIONS: LEFT SIDED SCIATICA TECHNIQUE: 2 views of the lumbar spine were acquired. COMPARISON: None. FINDINGS: Bones: 5 [id number] vertebrae are present. There is normal bony alignment. No vertebral body compression fractures. No suspicious bony lesions. Intervertebral disc space narrowing, endplate sc lerosis and osteophytosis are present at L4-5 and L5-S1. Soft tissues: Overlying bowel gas pattern is normal. Atheromatous calcifications are present within the abdominal aorta. IMPRESSION: Degenerative change of the lower lumbar spine and aortic atherosclerosis. Reviewed by: Kell Floyd MD on 09/21/2022 5:12 PM PST Approved by: Kell Floyd MD on 09/21/2022 5:12 PM PST Station ID: [id number]
== END 2022-09-21 23:59 | disposition home or self-care (01) ==
LOC: DI.S 08:00
PROVIDERS: ATTEND Internal Medicine Rheumatology
DX: M47.816 Spondylosis without myelopathy or radiculopathy, lumbar region (principal); M47.817 Spondylosis without myelopathy or radiculopathy, lumbosacral region

== ENCOUNTER 2023-06-15 00:12 | Outpatient (CLI) | payer OTHER, MEDICAID | END 2023-06-15 23:59 | disposition critical access hospital (66) | LOC: EMS 00:12 | DX: S00.83XA Contusion of other part of head, initial encounter (principal); R51.9 Headache, unspecified; M54.2 Cervicalgia; V57.5XXA Driver of pick-up truck or van injured in collision with fixed or stationary object in traffic accident, initial encounter; Y92.414 Local residential or business street as the place of occurrence of the external cause | CPT/HCPCS: A0425; A0429 ==

== ENCOUNTER 2023-06-15 00:44 | Emergency (ER) | payer OTHER, MEDICAID ==
[2023-06-15] MEDS ORDERED: oxyCODONE 5 MG TABLET PO STA (00:48)
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
[2023-06-15] MEDS ORDERED: oxyCODONE/ACET 5/325 Prepack 4 PO STA (02:48)
[2023-06-15 03:13] VITALS: BP 94/65; O2SAT 98
== END 2023-06-15 03:12 | disposition home or self-care (01) ==
LOC: EDUNIT# → ED 00:44
DX: S00.83XA Contusion of other part of head, initial encounter (principal); V49.88XA Car occupant (driver) (passenger) injured in other specified transport accidents, initial encounter; M54.2 Cervicalgia; I10 Essential (primary) hypertension
CPT/HCPCS: 70450; 70486; 72125; 99284; A9270

== ENCOUNTER 2023-06-28 21:42 | Emergency (ER) | payer MEDICAID ==
[2023-06-28 22:08] VITALS: BP 100/54; O2SAT 98
[2023-06-28] MEDS ORDERED: oxyCODONE 5 MG TABLET PO STA (22:45)
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
== END 2023-06-28 23:38 | disposition home or self-care (01) ==
LOC: ED 21:42
DX: R07.9 Chest pain, unspecified (principal); I10 Essential (primary) hypertension
CPT/HCPCS: 71046; 99283; A9270

== ENCOUNTER 2023-09-09 17:39 | Emergency (ER) | payer MEDICAID ==
[2023-09-09 18:07] LABS: BASOPHILS % (AUTO) 0.3 %; EOSINOPHILS % (AUTO) 0.3 %; HCT - HEMATOCRIT 38.5 % (37.0-47.0); HGB - HEMOGLOBIN 12.5 g/dL (12.0-16.0); LYMPHOCYTES # (AUTO) 1.4 10^3/uL (1.5-3.5); LYMPHOCYTES % (AUTO) 18.3 %; MEAN CORPUSCULAR HEMOGLOBIN 31.7 pg (27.0-31.0); MEAN CORPUSCULAR HGB CONC 32.5 g/dL (32.0-36.0); MEAN CORPUSCULAR VOLUME 97.7 fL (81.0-99.0); MEAN PLATELET VOLUME 11.4 fL (7.9-10.8); MONOCYTES # (AUTO) 0.7 10^3/uL (0.0-1.0); MONOCYTES % (AUTO) 8.9 %; NEUTROPHILS # (AUTO) 5.3 10^3/uL (1.5-6.6); NEUTROPHILS % (AUTO) 72.1 %; PLT - PLATELET COUNT 162 10^3/uL (130-450); RED BLOOD COUNT 3.94 10^6/uL (4.20-5.40); RED CELL DISTRIBUTION WIDTH 14.6 % (12.0-15.0); WHITE BLOOD COUNT 7.4 x10^3/uL (4.8-10.8)
[2023-09-09 18:19] LABS: ALBUMIN 4.2 g/dL (3.2-5.5); ALBUMIN/GLOBULIN RATIO 1.2 (1.0-2.2); BILIRUBIN,TOTAL 0.7 mg/dL (0.2-1.0); CALCIUM 9.7 mg/dL (8.5-10.3); CREATININE 0.9 mg/dL (0.6-1.3); POTASSIUM 3.1 mmol/L (3.5-4.5); TOTAL PROTEIN 7.7 g/dL (6.4-8.9)
[2023-09-09] MEDS ORDERED: SODIUM CHLORIDE 0.9% 1,000 ML IV STA (22:11)
[2023-09-09] MEDS ORDERED: ONDANSETRON 4 MG/2 ML VIAL IVP STA (22:11)
[2023-09-09] MEDS ORDERED: PANTOPRAZOLE 40 MG VIAL IVP STA (22:11)
--- NOTE | 2023-09-09 22:11 | ED Physician Documentation ---
PD HPI NVD - Stated complaint Stated Complaint: N/V - Chief complaint Chief Complaint: Abd Pain - History obtained from History obtained from: Patient - Additonal information Additional information: HPI from patient. Patient c/o difficulty tolerating PO, including liquids and solids. Patient says she had difficulty tolerating solids since last month (four weeks ago), then unable to tolerate liquids for 2 weeks. She was inpatient at [facility] for several days beginning of this month, d/c few days ago. she had extensive testing during inpatient stay including CT A/P , EGD with biopsies. There were no diagnostic results on these tests although EGD and biopsies were s/o Greenberg's esophagus. There were no masses/tumors, rings/webs, or other potential sources of GI blockage on these tests. She responded adequately to reglan and was d/c home. She says she is again having difficulty tolerating liquids, contacted PMD who advised her to go back to [facility]. Patient tells me she came to this ED instead because [facility] is "too expensive" (per patient). It is unclear to me what causes her to not tolerate PO. She describes nausea and vomiting at times, but other times she feels as though food gets stuck and then comes back up without nausea. Review of Systems Constitutional: reports: Weight Loss. denies: Fever Cardiac: reports: Reviewed and negative Respiratory: reports: Reviewed and negative GI: reports: Abdominal Pain, Nausea, Vomiting. denies: Abdominal Swelling, Constipation, Diarrhea Musculoskeletal: reports: Reviewed and negative Neurologic: reports: Reviewed and negative PD PAST MEDICAL HISTORY - Past Medical History Past Medical History: Yes Cardiovascular: Hypertension, High cholesterol, Other Respiratory: Asthma Neuro: None, CVA Endocrine/Autoimmune: Systemic lupus erythematosus, Other GI: None : None Psych: Depression, Anxiety Musculoskeletal: Rheumatoid arthritis Derm: Other - Past Surgical History Past Surgical History: No - Present Medications Home Medications: Ambulatory Orders Medication Instructions Recorded Confirmed Aspirin [Adult Aspirin Regimen] 81 mg PO DAILY #60 tablet. 09/15/19 11/11/19 Atorvastatin [Lipitor] 40 mg PO QPM #60 tablet 09/15/19 11/11/19 Amlodipine Besylate 10 mg PO DAILY 11/11/19 11/11/19 Carvedilol Phosphate [Carvedilol 40 mg PO DAILY 11/11/19 11/11/19 ER] Meloxicam 7.5 mg PO Q8HR PRN 11/11/19 11/11/19 Sertraline [Zoloft] 100 mg PO DAILY 11/11/19 11/11/19 Spironolactone 25 mg PO DAILY 11/11/19 11/11/19 methocarbamoL [Robaxin] 500 mg PO Q6H #20 tablet 06/15/23 Oxycodone HCl/Acetaminophen 1 each PO Q6H PRN #7 tablet 06/28/23 [Percocet 5-325 mg Tablet] Ondansetron Odt [Zofran Odt] 4 mg TL Q6H PRN #14 tablet 09/10/23 - Allergies Allergies/Adverse Reactions: Allergies Allergy/AdvReac Type Severity Reaction Status Date / Time Penicillins Allergy Unknown Verified 09/09/23 17:52 - Social History Does the pt smoke?: No Smoking Status: Never smoker Does the pt drink ETOH?: No Does the pt have substance abuse?: No - POLST Patient has POLST: No POLST Status: Full Code PD ED PE NORMAL - Vitals Vital signs reviewed: Yes - General General: Alert and oriented X 3, No acute distress, Well developed/nourished - HEENT HEENT: Moist mucous membranes - Cardiac Cardiac: RRR, No murmur - Respiratory Respiratory: No respiratory distress, Clear bilaterally - Abdomen Abdomen: Normal bowel sounds, Soft, Non tender, Non distended - Derm Derm: Normal color, Warm and dry - Neuro Neuro: Alert and oriented X 3 Results - Vitals Vitals: Oxygen O2 Source Room air - Labs Labs: Laboratory Tests 09/09/23 09/09/23 09/09/23 18:03 18:03 23:55 WBC 7.4 RBC 3.94 L Hgb 12.5 Hct 38.5 MCV 97.7 MCH 31.7 H MCHC 32.5 RDW 14.6 Plt Count 162 MPV 11.4 H Neut # (Auto) 5.3 Lymph # (Auto) 1.4 L [place] # (Auto) 0.7 Eos # (Auto) 0.0 Baso # (Auto) 0.0 Absolute Nucleated RBC 0.00 Nucleated RBC % 0.0 Sodium 138 Potassium 3.1 L Chloride 102 Carbon Dioxide 22 Anion Gap 14.0 H BUN 7 Creatinine 0.9 Estimated GFR (MDRD) 64 L Glucose 86 Calcium 9.7 Total Bilirubin 0.7 AST 17 ALT 12 Alkaline Phosphatase 58 Total Protein 7.7 Albumin 4.2 Globulin 3.5 Albumin/Globulin Ratio 1.2 Lipase 40 Urine Color YELLOW Urine Clarity CLEAR Urine pH 6.0 Ur Specific [place] >=1.030 H Urine Protein 30 H Urine Glucose (UA) NEGATIVE Urine Ketones 40 H Urine Occult Blood NEGATIVE Urine Nitrite NEGATIVE Urine Bilirubin NEGATIVE Urine Urobilinogen 0.2 (NORMAL) Ur Leukocyte Esterase TRACE H Urine RBC 0-5 Urine WBC 0-3 Ur Squamous Epith Cells MOD Squamous H Urine Bacteria Rare Ur Microscopic Review INDICATED Urine Culture Comments NOT INDICATED PD Medical Decision Making - ED course Complexity details: reviewed results, re-evaluated patient, considered differential, d/w patient ED course: I requested the inpatient notes from the patient's recent stay at [facility]. These were faxed to me and I reviewed them; they indicate extensive testing as noted in HPI. The tests included CT abdomen pelvis without concerning/diagnostic findings (bilateral pneumonia noted, presumably incidental finding and treated with abx). RUQ US unremarkable aside from fatty liver. An EGD was performed with biopsies. The results of the EGD and biopsies indicate no evidence of EOE, but findings were consistent with Greenberg's esophagus. The notes indicate differential diagnosis included gastroparesis. Tonight's blood tests are without concerning results. Mild hypokalemia is noted (potassium 3.1). Notably, she has normal BUN and creatinine which would suggest that the patient is adequately hydrated for now. She is given 4 mg IV Zofran and a total of 2 L of IV normal saline. She reports feeling much improved and was able to tolerate p.o. liquids, albeit a small amount. Explained to her that, at this point, there were no indications for inpatient treatment. I do understand the patient's frustration at the lack of diagnosis despite ongoing symptoms; I instructed her to contact her primary care provider when the office is open later today to arrange for next valve appointment. She might very well need further testing, but, at this point, this can happen in the outpatient setting. Departure - Departure Disposition: 01 Home, Self Care Clinical Impression: Vomiting Qualifiers: Vomiting type: unspecified Nausea presence: with nausea Qualified Code(s): R11.2 - Nausea with vomiting, unspecified Condition: Good Instructions: ED Nausea Vomiting Prescriptions: Ondansetron Odt [Zofran Odt] 4 mg TL Q6H PRN #14 tablet PRN Reason: Nausea / Vomiting Comments: There were no concerning Nor diagnostic findings on tonight's blood tests. One abnormality that is worth noting was a low potassium (3.1). You should mention this to your primary care provider as they might want to repeat this level within the next several days or week. I recommend that you contact both your supervisor carbon paper coating and your primary care provider to arrange for next available appointments with both of these practitioners. Forms: PCP List Discharge Date/Time: 09/10/23 07:56
[2023-09-10 00:05] LABS: GLUCOSE, URINE (UA) NEGATIVE (NEGATIVE); KETONES,URINE (UA) 40 mg/dL (NEGATIVE); LEUKOCYTE ESTERASE, URINE TRACE (NEGATIVE); NITRITE,URINE NEGATIVE (NEGATIVE); OCCULT BLOOD,URINE NEGATIVE (NEGATIVE); PROTEIN,URINE 30 mg/dL (NEGATIVE); UROBILINOGEN,URINE 0.2 (NORMAL) E.U./dL (NORMAL)
[2023-09-10 00:09] LABS: BILIRUBIN,URINE NEGATIVE (NEGATIVE); CLARITY,URINE CLEAR (CLEAR); ICTOTEST,URINE NEGATIVE
[2023-09-10 00:12] LABS: BACTERIA,URINE Rare /HPF (None Seen); RBC,URINE 0-5 /HPF (0-5); SQUAMOUS EPITHELIAL CELL,UR MOD Squamous (<= Few); WBC,URINE 0-3 /HPF (0-5)
[2023-09-10 07:19] VITALS: BP 111/67; O2SAT 98
== END 2023-09-10 07:56 | disposition home or self-care (01) ==
LOC: ED 17:39
DX: R11.2 Nausea with vomiting, unspecified (principal); I10 Essential (primary) hypertension
CPT/HCPCS: 36415; 80053; 81001; 81003; 83690; 85025; 87086; 96374; 99284